=== PATIENT | male | born 1955 | race Two or more races ===

== ENCOUNTER 2024-06-05 08:59 | Emergency (ER) | payer MEDICARE, SELFPAY ==
[2024-06-05 08:59] VITALS: BMI 27.1
[2024-06-05 09:08] VITALS: BP 109/68; PULSE 86; RESP 19; TEMP 36.6; O2SAT 95; BMI 27.4
--- NOTE | 2024-06-05 09:30 | XR_ITS ---
Examination: CT lumbar spine, without contrast. 2-D sagittal reconstructions. 2-D coronal reconstructions. 3-D reconstructions. Date and time of exam:June 05, 2024 1032 hours INDICATIONS: Patient fell yesterday with injury to the lower back, lower back pain CTDI: vol (mGy):17.1 DLP: (mGycm):533 Technique: Multiple 1.25 mm axial sections of the lumbar spine without intravenous contrast have been obtained. 2-D sagittal and coronal reconstructions have been obtained. 3-D reconstructions have been obtained. Low dose protocols were performed. One or more of the following dose reduction techniques were used; automated exposure control, adjustment of the mA and/or KV according to patient size, use of iterative reconstruction technique. Findings: Adequate alignment lumbar vertebral bodies Mild disc narrowing upper 4 lumbar levels No lumbar vertebral body compression fracture Acute fracture right transverse process L1 without significant displacement L5-S1 4 mm central lumbar disc bulge L4-L5 4 mm central lumbar disc bulge IMPRESSION: Acute nondisplaced fracture right transverse process L1 Lumbar vertebral body compression fracture L5-S1, L4-L5 4 mm central lumbar disc bulges
--- NOTE | 2024-06-05 12:02 | EDNOTE_ITS ---
ED Back Injury Pain RME/HPI General Chief Complaint: Back Pain/Injury Stated Complaint: LOWER BACK PAIN S/P FALL YESTERDAY Time Seen by Provider: 06/05/24 09:26 Arrival date/time: 06/05/24 08:59 68-year-old male presents emergency department complains of right lower back pain after fall yesterday patient reports he was not dizzy prior to the fall he reports this was mechanical fall patient reports no head or neck injury Limitations: no limitations Related Data Home Medications ?Medication ?Instructions ?Recorded ?Confirmed alprazolam 1 mg tablet 1 mg PO BID ##0 11/01/07 01/03/20 bupropion HCl 150 mg 24 hr tablet, 150 mg PO QPM ##0 11/01/07 01/03/20 extended release (Wellbutrin XL) bupropion HCl 300 mg 24 hr tablet, 300 mg PO QAM ##0 11/01/07 01/03/20 extended release (Wellbutrin XL) dutasteride 0.5 mg capsule 0.5 mg PO DAILY ##0 11/01/07 01/03/20 (Avodart) omeprazole 20 mg capsule,delayed 20 mg PO QDAY ##0 03/22/17 01/03/20 release escitalopram oxalate 5 mg tablet 5 mg PO QDAY #0 tabs 03/23/17 01/03/20 (Lexapro) Previous Rx's ?Medication ?Instructions ?Recorded dicyclomine 20 mg tablet 20 mg PO Q8HR PRN Abdominal cramps 07/02/19 #10 tabs acetaminophen 500 mg capsule 1,000 mg (2 x 500 mg) PO Q6H PRN 01/02/20 fever or pain #30 caps ibuprofen 800 mg tablet 800 mg PO TID PRN pain #30 tabs 01/02/20 acetaminophen 500 mg capsule 1,000 mg (2 x 500 mg) PO Q6H PRN 01/03/20 fever or pain #30 caps ibuprofen 600 mg tablet 600 mg PO Q8H PRN fever or pain 01/03/20 #30 tabs hydrocodone 5 mg-acetaminophen 325 1 tab PO BID PRN pain #14 tabs 06/15/23 mg tablet ibuprofen 800 mg tablet 800 mg PO TID PRN pain #30 tabs 06/15/23 cyclobenzaprine 10 mg tablet 10 mg PO TID PRN muscle spasm 10 06/05/24 days #30 tab-caps hydrocodone 5 mg-acetaminophen 325 1 tab PO BID PRN pain #10 tabs 06/05/24 mg tablet Allergies Allergy/AdvReac Type Severity Reaction Status Date / Time No Known Allergies Allergy Verified 06/05/24 09:02 Review of Systems Review of Systems Systems Reviewed: All systems reviewed, normal except as documented Constitutional Constitutional: Reports system reviewed and no additional complaints, except as documented, Denies fever(s) and Denies headache(s) Eyes Eyes: Reports system reviewed and no additional complaints, except as documented and Denies blurry vision ENT Ears, Nose, Mouth, and Throat: Reports system reviewed and no additional complaints, except as documented, Denies headache(s), Denies nasal congestion and Denies nasal discharge Cardiovascular Cardiovascular: Reports system reviewed and no additional complaints, except as documented, Denies chest pain and Denies dyspnea Respiratory Respiratory: Reports system reviewed and no additional complaints, except as documented, Denies chest congestion, Denies cough and Denies dyspnea Gastrointestinal Gastrointestinal: Reports system reviewed and no additional complaints, except as documented and Denies abdominal pain Musculoskeletal Musculoskeletal: Reports system reviewed and no additional complaints, except as documented and Reports back pain Integumentary/Breasts Skin/Breast: Reports system reviewed and no additional complaints, except as documented and Denies rash Neurologic Neurologic: Reports system reviewed and no additional complaints, except as documented, Reports as per HPI and Denies headache(s) Past Medical History Past Medical History NEUROLOGIC: Negative Neurological Disorders CARDIAC: Positive Cardiac Disorders and Hypertension; Negative Congestive Heart Failure RESPIRATORY: Negative Chronic Obstructive Pulmonary Disease (COPD) GENITOURINARY: Negative Genitourinary Disorders or Renal Disease ENDOCRINE: Negative Endocrine Disorders, Diabetes Mellitus Type 1 or Diabetes Mellitus Type 2 Social History SMOKING STATUS: Never smoker SUBSTANCE USE: does not use ED Exam General Limitations: Present no limitations General appearance: Present alert and in no apparent distress Head Head exam: Present atraumatic Eye Eye exam: Present normal appearance, PERRL and EOMI ENT ENT exam: Present normal exam, normal oropharynx and mucous membranes moist Neck Neck exam: Present normal inspection, full ROM and trachea midline Chest Chest inspection: Present normal inspection and symmetric chest wall rise Respiratory Respiratory exam: Present normal lung sounds bilaterally Cardiovascular Cardiovascular exam: Present regular rate, normal rhythm and normal heart sounds Abdominal Exam Abdominal exam: Present soft and normal bowel sounds Extremities Exam Extremities exam: Present normal inspection and full ROM Back Exam Back exam: Present normal inspection and full ROM Neurological Exam Neurological exam: Present alert, oriented X3 and CN II-XII intact Psychiatric Psychiatric exam: Present normal affect and normal mood Skin Skin exam: Present warm, dry, intact and normal color Course Quality Measures none Orders Category Date Time Status CT lumbar spine wo con Stat Exams 06/05/24 09:30 Completed Vital Signs Vital signs: Vital Signs Temperature 97.9 F 06/05/24 09:08 Pulse Rate 86 06/05/24 09:08 Respiratory Rate 19 06/05/24 09:08 Blood Pressure 109/68 06/05/24 09:08 Pulse Oximetry (%) 95 06/05/24 09:08 Oxygen Delivery Method Room Air 06/05/24 09:08 O2 saturation 95% room air with normal limits Back Pain / Injury MDM Narrative MDM Narrative:: 68-year-old male presents emergency department complains of right lower back pain after fall yesterday patient reports he was not dizzy prior to the fall he reports this was mechanical fall patient reports no head or neck injury On exam head and neck are atraumatic On exam patient has right lower back pain worse with movement Patient has point tenderness right lower back Patient walks with a steady gait denies any saddle anesthesia or loss of bowel or bladder CT scan of the lumbar spine obtained patient has transverse process fracture Patient discharged home in no distress to follow-up with primary care doctor in the next 24 to 48 hours and for any worsening symptoms to return to the ER immediately Patient data External records reviewed:: [facility] previous records Clinical information provided by:: patient Social determinants that could affect healthcare access:: none Patient has the following chronic illnesses:: see history How is presenting disease/condition affected by chronic disease/condition?: uneffected by Evaluation data The following diagnostics were reviewed and interpreted by me:: radiology exam(s) Lab and/or radiology exams considered but not ordered:: Radiology obtain Interpretation Summary: Reviewed by me Medications / Prescriptions Medications or Prescriptions considered but not ordered:: Given Medication administrations:: Given Consultations Consultation(s) initiated? (list below): No Diagnosis Differential diagnosis back pain/injury: lumbar radiculopathy, sciatica and strain of lumbar region Most likely diagnosis given after review of the tests above:: Fracture lumbar spine Admission Indicated Admission indicated?: not indicated Admission Request Was there a request for admission?: No Disposition Plan Disposition Plan: Discharge Discharge Attestation Discharge Attestation: The patient and all family members were given an opportunity to ask questions and understood the discharge instructions. Discharge instructions specifically effects, indications for sooner follow up or return to the emergency department, and the expected course of current diagnosis. Patient condition: Stable Discharge Plan Plan Patient Disposition: HOME (Self Care) Disposition Comment: Stable Prescriptions/Referrals Prescriptions/Med Rec: New cyclobenzaprine 10 mg tablet 10 mg PO TID PRN (Reason: muscle spasm) 10 Days Qty: 30 0RF hydrocodone-acetaminophen 5-325 mg tablet 1 tab PO BID MDD 10 PRN (Reason: pain) Qty: 10 0RF No Action alprazolam 1 MG tablet 1 mg PO BID Qty: 0 dutasteride [Avodart] 0.5 MG capsule 0.5 mg PO DAILY Qty: 0 bupropion HCl [Wellbutrin XL] 300 MG tablet extended release 24 hr 300 mg PO QAM Qty: 0 bupropion HCl [Wellbutrin XL] 150 MG tablet extended release 24 hr 150 mg PO QPM Qty: 0 omeprazole 20 MG capsule,delayed release(DR/EC) 20 mg PO QDAY Qty: 0 escitalopram oxalate [Lexapro] 5 MG tablet 5 mg PO QDAY Qty: 0 dicyclomine 20 mg tablet 20 mg PO Q8HR PRN (Reason: Abdominal cramps) Qty: 10 0RF ibuprofen 800 mg tablet 800 mg PO TID PRN (Reason: pain) Qty: 30 0RF acetaminophen 500 mg capsule 1,000 mg PO Q6H PRN (Reason: fever or pain) Qty: 30 0RF ibuprofen 600 mg tablet 600 mg PO Q8H PRN (Reason: fever or pain) Qty: 30 0RF acetaminophen 500 mg capsule 1,000 mg PO Q6H PRN (Reason: fever or pain) Qty: 30 0RF ibuprofen 800 mg tablet 800 mg PO TID PRN (Reason: pain) Qty: 30 0RF hydrocodone-acetaminophen 5-325 mg tablet 1 tab PO BID MDD 10 PRN (Reason: pain) Qty: 14 0RF Referrals: Erendira North NP [Primary Care Provider] - In 1 week Problem List Clinical Impression: Lumbar transverse process fracture Patient/Caregiver Discharge Instructions Education Materials: Back Safety: Bending Additional Instructions: Please follow up with your primary care doctor in the next 24-48hrs for any worsening symptoms return here immediately Print Language: Ivorian Stand Alone Forms: Richa Award Info., Patient Portal Info Letter PA/[employer] Supervising Physician PA/[employer] Supervising Physician: Dr. henderson
[2024-06-05 12:21] VITALS: BP 120/68; PULSE 72; RESP 16; O2SAT 98
== END 2024-06-05 12:21 | disposition home or self-care (01) ==
PROVIDERS: Emergency Provider Emergency Medicine; PCP Nurse Practitioner Family
DX: S32.019A Unspecified fracture of first lumbar vertebra, initial encounter for closed fracture (principal); W19.XXXA Unspecified fall, initial encounter
CPT/HCPCS: 72131; 99284

== ENCOUNTER → 2024-08-06 | Outpatient (CLI) | payer MEDICARE, SELFPAY ==
--- NOTE | 2024-08-06 15:45 | XR_ITS ---
Examination: Abdomen sonogram, complete Date and time of exam: August 06, 2024 1558 hours INDICATIONS: Right upper abdominal pain hematuria beginning one week ago. Technique: Multiple real-time grayscale transabdominal sonographic images of the abdomen have been obtained. Findings: Absent gallbladder Normal bile duct 0.3 cm Pancreatic head 2.9 cm Aorta not enlarged Liver 14.9 cm smooth contour no focal liver lesions Normal hepatopedal portal venous flow Patent IVC Right kidney 9.6 x 7.6 x 7.0 cm renal cortex 1.9 cm Hyperechoic solid mass upper pole 2.2 x 1.9 x 2.1 cm Lower pole cyst 14 mm Left kidney 10.7 x 5.8 x 6.5 cm cortex 1.8 cm Multiple cysts, the largest upper pole 21 mm Mild bilateral renal parenchymal scar formation Spleen 11.8 cm IMPRESSION: Recommend CT scan abdomen pre and post contrast follow-up to assess solid mass upper pole right kidney 2.2 x 1.9 x 2.1 cm
--- NOTE | 2024-08-06 15:45 | XR_ITS ---
Examination: Retroperitoneal ultrasound, complete Technique: Multiple high resolution grayscale images of the retroperitoneum obtained, including kidneys and bladder. Exam date and time:August 06, 2024 1633 hours INDICATIONS: Right upper abdominal pain, hematuria episodes beginning one week ago FINDINGS: Right kidney 9.4 x 6.9 x 6.4 cm in the cortex 1.5 cm Isoechoic to hyperechoic mass upper pole kidney 1.8 x 2.0 x 2.3 cm Lower pole cyst 14 mm Left kidney 10.3 x 6.7 x 6.3 cm cortex 1.6 cm Multiple cysts, the largest in the upper pole 28 mm Mild bilateral renal parenchymal scar formation No bladder mass or bladder calculi Bladder prevoid volume 174 cc unable to void Prostate volume 34 cc no prostate nodules multiple calcifications are present IMPRESSION: Recommend CT scan abdomen kidneys follow-up pre and postcontrast to confirm solid mass upper pole right kidney 1.8 x 2.0 x 2.3 cm
[2024-08-06 17:18] LABS: Collection Type, Urine Clean Catch
[2024-08-06 17:38] LABS: Basophils # (Auto) 0.1 Thou/mm3 (0.0-0.2); Basophils % (Auto) 1 % (0-2.5); Eosinophils # (Auto) 0.2 Thou/mm3 (0.0-0.5); Eosinophils % (Auto) 2 % (0-10); Hematocrit 42.3 % (41.0-53.0); Hemoglobin 14.6 g/dL (13.5-16.0); Immature Granulocytes % (Auto) 0 % (0-0); Immature Granulocytes Auto 0.02 Thou/mm3 (0.00-0.00); Lymphocytes # (Auto) 1.8 Thou/mm3 (1.0-4.8); Lymphocytes % (Auto) 20 % (10-50); Mean Corpuscular HGB Conc 34.5 g/dl (31.0-37.0); Mean Corpuscular Volume 87 fL (80-100); Monocytes # (Auto) 0.6 Thou/mm3 (0.0-0.8); Monocytes % (Auto) 6 % (0-12); Neutrophils # (Auto) 6.6 Thou/mm3 (1.8-7.7); Neutrophils % (Auto) 72 % (37-80); Nucleated Red Blood Cell % 0 /100 WBC (0); Platelet Count 307 Thou/mm3 (140-440); RDW Standard Deviation 46.1 fL (35.1-43.9); Red Blood Count 4.86 Miln/mm3 (4.50-5.90); White Blood Count 9.2 Thou/mm3 (3.8-10.6)
[2024-08-06 17:41] LABS: Bilirubin,Urine Negative (Negative); Blood,Urine Negative (Negative); Clarity,Urine Clear (Clear/Hazy); Color,Urine Lt-Yellow (Lt Yel-Yel); Glucose, Urine Trace (Negative); Ketones,Urine Negative (Negative); Leukocyte Esterase,Urine Negative (Negative); Nitrite,Urine Negative (Negative); PH,Urine 6.5 (5.0-7.0); Protein,Urine Negative (Neg - Trace); RBC,Urine 3 /hpf (0-3); Specific Gravity,Urine 1.025 (1.001-1.035); Squamous Epithelial Cell,Urine < 1 /hpf (0-5); Urobilinogen,Urine Negative mg/dL (0.0-1.0); WBC,Urine 1 /hpf (0-5)
[2024-08-06 17:56] LABS: Creatinine MALB Rnd Ur 148 mg/dL (30-125); Microalbumin Creat Ratio 2 mg/gCrea (<30); Microalbumin, Random Urine 3 mg/L (0-300)
[2024-08-06 17:58] LABS: Prostate Specific Antigen 1.34 ng/mL (0-4.00)
[2024-08-06 18:00] LABS: Alanine Aminotransferase 31 U/L (10-49); Albumin, Serum 4.3 gm/dL (3.4-4.8); Albumin/Globulin Ratio 1.7 (1.2-2.2); Alkaline Phosphatase 102 U/L (46-116); Anion Gap 8 (7-16); Aspartate Amino Transferase 20 U/L (0-34); BUN/Creatinine Ratio 20 Ratio (12-20); Bilirubin,Total 0.4 mg/dL (0.3-1.2); Blood Urea Nitrogen 22 mg/dL (9-23); Calcium 9.3 mg/dL (8.3-10.6); Calcium (Corrected) 9.3 mg/dL (8.5-10.1); Carbon Dioxide 25.1 mMol/L (20.0-31.0); Chloride 105 mMol/L (98-107); Creatinine (Component) 1.1 mg/dL (0.6-1.3); Globulin 2.6 gm/dL (2.3-3.5); Glucose 131 mg/dL (74-106); Osmolality,Calculated 280 (275-295); Potassium 4.4 mMol/L (3.4-5.1); Sodium 138 mMol/L (136-145); Total Protein 6.9 gm/dL (5.7-8.2); eGFR > 60 See Note
== END | disposition home or self-care (01) ==
LOC: COPL 15:28
PROVIDERS: PCP Nurse Practitioner Family; Referring Provider Nurse Practitioner Family; Visit Provider Radiology Diagnostic Radiology
DX: R10.9 Unspecified abdominal pain (principal); R31.9 Hematuria, unspecified; E11.65 Type 2 diabetes mellitus with hyperglycemia; E78.2 Mixed hyperlipidemia; R10.0 Acute abdomen; R14.0 Abdominal distension (gaseous); K21.00 Gastro-esophageal reflux disease with esophagitis, without bleeding; Z12.5 Encounter for screening for malignant neoplasm of prostate; Z79.899 Other long term (current) drug therapy
CPT/HCPCS: 36415; 76700; 76770; 80053; 80061; 81001; 82043; 82570; 83036; 84153; 85025; 87086

== ENCOUNTER → 2024-08-08 | Outpatient (CLI) | payer MEDICARE, SELFPAY ==
[2024-08-15 06:24] LABS: Helicobacter pylori Ag, Stool* NOT DETECTED (NOT DETECTED)
== END | disposition home or self-care (01) ==
LOC: SLDO 12:02
PROVIDERS: Referring Provider Nurse Practitioner Family; Visit Provider Nurse Practitioner Family
DX: E11.65 Type 2 diabetes mellitus with hyperglycemia (principal); E78.2 Mixed hyperlipidemia; R10.0 Acute abdomen; R14.0 Abdominal distension (gaseous); R31.9 Hematuria, unspecified; Z12.5 Encounter for screening for malignant neoplasm of prostate; K21.00 Gastro-esophageal reflux disease with esophagitis, without bleeding; Z79.899 Other long term (current) drug therapy
CPT/HCPCS: 87015; 87045; 87046; 87177; 87209; 87338; 87899

== ENCOUNTER → 2024-08-15 | Outpatient (CLI) | payer MEDICARE, SELFPAY ==
[2024-08-15 10:13] LABS: Misc Send Out* See Sep Rpt
[2024-08-15 10:16] LABS: Collection Type, Urine Clean Catch; Squamous Epithelial Cell,Urine 0 /hpf (0-5)
[2024-08-15 11:43] LABS: Bilirubin,Urine Negative (Negative); Blood,Urine Negative (Negative); Clarity,Urine Clear (Clear/Hazy); Color,Urine Colorless (Lt Yel-Yel); Glucose, Urine Negative (Negative); Ketones,Urine Negative (Negative); Leukocyte Esterase,Urine Negative (Negative); Nitrite,Urine Negative (Negative); Protein,Urine Negative (Neg - Trace); RBC,Urine 1 /hpf (0-3); Specific Gravity,Urine 1.004 (1.001-1.035); Urobilinogen,Urine Negative mg/dL (0.0-1.0); WBC,Urine < 1 /hpf (0-5)
[2024-08-19 03:06] LABS: Cow's Milk (f2) Class 0; Cow's Milk (f2) IgE <0.10 kU/L; Egg White (F1) Class 0; Egg White (F1) IgE <0.10 kU/L; Egg Yolk (F75) IgE <0.10 kU/L; Soybean (F14) Class 0; Soybean (F14) IgE <0.10 kU/L; Wheat (F4) Class 0; Wheat (F4) IgE <0.10 kU/L
[2024-08-20 06:53] LABS: Egg Yolk (F75) Class 0
== END | disposition home or self-care (01) ==
LOC: COPL 09:39
PROVIDERS: PCP Nurse Practitioner Family; Referring Provider Nurse Practitioner Family; Visit Provider Nurse Practitioner Family
DX: R10.9 Unspecified abdominal pain (principal); R14.0 Abdominal distension (gaseous); N39.0 Urinary tract infection, site not specified; K21.9 Gastro-esophageal reflux disease without esophagitis
CPT/HCPCS: 36415; 81001; 86003; 86021; 86036; 86671

== ENCOUNTER → 2024-08-16 | Outpatient (CLI) | payer MEDICARE, SELFPAY ==
[2024-08-23 06:38] LABS: Helicobacter pylori Ag, Stool* NOT DETECTED (NOT DETECTED)
== END | disposition home or self-care (01) ==
LOC: SLDO 16:36
PROVIDERS: PCP Nurse Practitioner Family; Referring Provider Nurse Practitioner Family; Visit Provider Nurse Practitioner Family
DX: R10.9 Unspecified abdominal pain (principal); R14.0 Abdominal distension (gaseous); N39.0 Urinary tract infection, site not specified; K21.9 Gastro-esophageal reflux disease without esophagitis
CPT/HCPCS: 87338

== ENCOUNTER 2024-08-29 10:01 | Inpatient (IN) | payer MEDICARE, SELFPAY ==
[2024-08-29] VITALS (7 sets, daily range): BP systolic 95–105; BP diastolic 54–73; PULSE 94–104; RESP 16–29; TEMP 36.4–37.9; O2SAT 94–100; BMI 25.8; BMI 26.8
--- NOTE | 2024-08-29 | XR_ITS ---
MRI abdomen, without contrast. MRCP Date and time of exam: August 29, 2024 1402 hours INDICATIONS: Chief complaint lower abdominal pain distal and 50 today, CT abdomen pelvis study today pancreatic head 2.8 cm Technique: Multiple axial and coronal images of the abdomen have been obtained with the Siemens 1.5T MRI scanner. Images obtained included T1 weighted transverse images, T2-weighted transverse images, T2-weighted transverse images fat-suppressed, T2 weighted haste fat suppressed transverse images, T1 weighted images, in and out of phase images, T2-weighted coronal images, breath hold, T2 weighted haze coronal images as well as T2 weighted coronal thick slab images, MRCP. Findings: Small liver cysts 26 mm probable hemangioma posterior right lobe liver Absent gallbladder Common hepatic common bile duct normal size 3 to 4 mm no stones Pancreatic head in AP dimension 4.5 cm No dilated pancreatic duct No hydronephrosis Spleen not enlarged No malignant ascites IMPRESSION: Pancreatic head is prominent Recommend MRI abdomen with intravenous contrast follow-up
--- NOTE | 2024-08-29 | XR_ITS ---
Examination: MRI abdomen with intravenous contrast TECHNIQUE: Multiple axial sagittal coronal MRI images abdomen postintravenous administration 20 cc gadolinium Examination date and time: August 29, 2024 1950 hours INDICATIONS: Prominent pancreatic head on CT abdomen study today FINDINGS: No intrahepatic biliary tract dilatation Pancreatic head 3.9 cm No dilated pancreatic duct No hydronephrosis Aorta normal size No mesenteric lymphadenopathy No ascites IMPRESSION: Prominent pancreatic head 3.9 cm, clinical correlation is advised Recommend three-month follow-up MRI abdomen pre and postcontrast
--- NOTE | 2024-08-29 10:05 | EKG_ITS ---
[facility] Test Date: 2024-08-29 Pat Name: TL BERNABE Department: Room: - Gender: Male [place] Car[place]: : 1955 Requested By: ED Temporary Provider Order Number: [id number] Reading MD: ED Temporary Provider Measurements Intervals [place] Rate: 103 P: 54 NE: 171 QRS: 24 QRSD: 92 T: 66 QT: 306 QTc: 401 Interpretive Statements SINUS TACHYCARDIA NONSPECIFIC T-WAVE ABNORMALITY ABNORMAL RHYTHM ECG Compared to ECG 07/01/2019 23:05:07 T-wave abnormality now present Sinus rhythm no longer present /store/[id number].pdf
--- NOTE | 2024-08-29 10:42 | XR_ITS ---
Examination: CT abdomen and pelvis without contrast. Coronal 3-D reconstructions. Sagittal 2-D reconstructions. Date and time of exam:August 29, 2024 1057 hours Comparison March 12, 2021 INDICATIONS: Lower abdominal pain and nausea onset today CTDI: vol (mGy): 6.58 DLP: (mGycm): 434 Technique: Axial images of the abdomen have been obtained, 3 mm slice thickness Intravenous contrast material has not been administered. Low dose protocols were performed. One or more of the following dose reduction techniques were used; automated exposure control, adjustment of the mA and/or KV according to patient size, use of iterative reconstruction technique. Findings: Soft opacities in both lower lung zones consistent with pneumonia Small probable liver cyst Absent gallbladder Spleen is not enlarged Absent gallbladder No pancreatic or adrenal mass Pancreatic head is prominent at least 3.8 cm 2 mm right renal calculus Perinephric stranding Aorta normal size Normal appendix No bowel obstruction No bladder mass Prostate radiation seeds, transverse prostate dimension 4.7 cm Moderate osteopenia IMPRESSION: Soft opacities in the lower lung zones, recommend PA lateral chest follow-up Prominent pancreatic head 3.8 cm, recommend MRI MRCP abdomen follow-up pre and postcontrast 10 mm right renal calculus Perinephric stranding consider urinary tract infection Moderate prostatomegaly No bowel obstruction Recommend hepatic sonography to confirm liver cysts
--- NOTE | 2024-08-29 10:43 | EDRME_ITS ---
Rapid Medical Screening Exam RME Arrival date/time: 08/29/24 10:01 69-year-old male with a history of Crohn's disease presents to the emergency room with a chief complaint of lower abdominal pain, blood in the stool, fatigue x 1 day I have greeted and performed a focused initial assessment of this patient. A com prehensive ED assessment and evaluation of the patient, analysis of all test results, and completion of the medical decision making process will be conducted by additional ED providers. Vital signs: Vital Signs Temperature 97.6 F 08/29/24 10:37 Pulse Rate 104 H 08/29/24 10:37 Respiratory Rate 20 08/29/24 10:37 Blood Pressure 103/67 08/29/24 10:37 Pulse Oximetry (%) 100 08/29/24 10:37 Oxygen Delivery Method Room Air 08/29/24 10:37 Vital signs reviewed by provider: Yes
[2024-08-29 11:01] LABS: Basophils % (Auto) 0 % (0-2.5); Eosinophils # (Auto) 0.1 Thou/mm3 (0.0-0.5); Eosinophils % (Auto) 1 % (0-10); Hematocrit 24.8 % (41.0-53.0); Immature Granulocytes % (Auto) 0 % (0-0); Immature Granulocytes Auto 0.04 Thou/mm3 (0.00-0.00); Lymphocytes # (Auto) 1.8 Thou/mm3 (1.0-4.8); Lymphocytes % (Auto) 17 % (10-50); Mean Corpuscular HGB Conc 33.5 g/dl (31.0-37.0); Mean Corpuscular Hemoglobin 28.8 pg (25.0-35.0); Mean Corpuscular Volume 86 fL (80-100); Monocytes # (Auto) 0.6 Thou/mm3 (0.0-0.8); Monocytes % (Auto) 6 % (0-12); Neutrophils # (Auto) 8.2 Thou/mm3 (1.8-7.7); Neutrophils % (Auto) 76 % (37-80); Nucleated Red Blood Cell % 0 /100 WBC (0); Platelet Count 238 Thou/mm3 (140-440); RDW Standard Deviation 44.1 fL (35.1-43.9); Red Blood Count 2.88 Miln/mm3 (4.50-5.90); White Blood Count 10.7 Thou/mm3 (3.8-10.6)
[2024-08-29 11:04] LABS: Hemoglobin 8.3 g/dL (13.5-16.0)
--- NOTE | 2024-08-29 11:13 | PD.EDSYNC ---
ED Syncope RME/HPI General Chief Complaint: Dizziness Stated Complaint: PASSED OUT TODAY, DIZZY SINCE YESTERDAY Time Seen by Provider: 08/29/24 11:13 Arrival date/time: 08/29/24 10:01 69 year old male with past medical history of pancreatitis, cholelthiasis present to emergency room with c/o of syncope episode and dizziness since yesterday. per family report found patient on the ground with diarrhea/bloody stool. LOCATION: generalized SEVERITY: Symptoms are described as being severe with limitations on activities of daily living CONTEXT: The patient is unable to identify any inciting events. DURATION/TIMING: The symptoms started approximately 1 day ASSOCIATED SYMPTOMS: rectal bleeding, syncope, dizziness, weakness MODIFYING FACTORS: The patient is unable to identify any alleviating or aggravating symptoms. PERTINENT ROS: no fevers, no cough, no pleuritic pain, no ripping or tearing sensations, denies any lower extremity edema and no unilateral swelling, no chest pain/shortness of breath no nausea,vomiting, diarrhea, no headache no rash episode no abd/back pain no dsyuria,urgency,frequency REVIEW OF SYSTEMS: See History of Present Illness - with the exception of those mentioned in the history of present illness, all other systems reviewed and reported as negative GENERAL: In general the patient is awake, interactive, in an emergency department gurney. HEAD/EYES/EARS/NOSE/THROAT: normo-cephalic, atraumatic, mucus membranes are moist, anicteric, palpebral conjunctiva is pink, trachea is midline. CARDIOVASCULAR: regular rate and regular rhythm, no murmurs, heart sounds are not distant, strong pulses in all four extremities that are equal and symmetric bilateral upper and lower extremities, normal capillary refill. CHEST/PULMONARY: normal chest rise and fall, good air movement, clear to auscultation bilaterally, normal inspiratory to expiratory ratios without evidence of respiratory distress. NECK: No midline/Paraspinal tenderness, no step off ROM/Strenght intact No Kernig and bruzinski sign. No trauma ABDOMEN: soft, not tender, no masses appreciated BACK: normal range of motion without pain. NEUROLOGICAL: cranio-facial features are symmetric, moves all four extremities equally without obvious limitations or weakness. EXTREMITY: no tenderness to palpation over the long bones or large joints of the bilateral upper and lower extremities, no joint swelling, no joint erythema, no signs of trauma, no unilateral leg swelling and no peripheral edema. SKIN: warm, dry, well-perfused, no jaundice, no rash, no telangiectasias or petechia. PSYCH: calm, cooperative, no evidence of psychosis or agitation RME / HPI RME / HPI narrative: 08/29/24 10:01 69-year-old male with a history of Crohn's disease presents to the emergency room with a chief complaint of lower abdominal pain, blood in the stool, fatigue x 1 day I have greeted and performed a focused initial assessment of this patient. A comprehensive ED assessment and evaluation of the patient, analysis of all test results, and completion of the medical decision making process will be conducted by additional ED providers. Related Data Home Medications ?Medication ?Instructions ?Recorded ?Confirmed alprazolam 1 mg tablet 1 mg PO BID ##0 11/01/07 01/03/20 bupropion HCl 150 mg 24 hr tablet, 150 mg PO QPM ##0 11/01/07 01/03/20 extended release (Wellbutrin XL) bupropion HCl 300 mg 24 hr tablet, 300 mg PO QAM ##0 11/01/07 01/03/20 extended release (Wellbutrin XL) dutasteride 0.5 mg capsule 0.5 mg PO DAILY ##0 11/01/07 01/03/20 (Avodart) omeprazole 20 mg capsule,delayed 20 mg PO QDAY ##0 03/22/17 01/03/20 release escitalopram oxalate 5 mg tablet 5 mg PO QDAY #0 tabs 03/23/17 01/03/20 (Lexapro) Previous Rx's ?Medication ?Instructions ?Recorded dicyclomine 20 mg tablet 20 mg PO Q8HR PRN Abdominal cramps 07/02/19 #10 tabs acetaminophen 500 mg capsule 1,000 mg (2 x 500 mg) PO Q6H PRN 01/02/20 fever or pain #30 caps ibuprofen 800 mg tablet 800 mg PO TID PRN pain #30 tabs 01/02/20 acetaminophen 500 mg capsule 1,000 mg (2 x 500 mg) PO Q6H PRN 01/03/20 fever or pain #30 caps ibuprofen 600 mg tablet 600 mg PO Q8H PRN fever or pain 01/03/20 #30 tabs hydrocodone 5 mg-acetaminophen 325 1 tab PO BID PRN pain #14 tabs 06/15/23 mg tablet ibuprofen 800 mg tablet 800 mg PO TID PRN pain #30 tabs 06/15/23 hydrocodone 5 mg-acetaminophen 325 1 tab PO BID PRN pain #10 tabs 06/05/ mg tablet Allergies Allergy/AdvReac Type Severity Reaction Status Date / Time No Known Allergies Allergy Verified 08/29/24 10:05 Course Quality Measures none Orders Category Date Time Status EKG (ED ONLY) *Do not use* NOW Care 08/29/24 10:05 Completed Insert IV NOW Care 08/29/24 12:21 Active MRI Screening NOW Care 08/29/24 11:49 Active Occult Blood,Stool (Nursing) NEEDED Care 08/29/24 10:42 Completed Occult Blood,Stool (Nursing) ONCE Care 08/29/24 11:55 Active Consult to Gastroenterology Stat Cons 08/29/24 13:16 Ordered Diet Clear Liquid Diet 08/29/[address] abdomen pelvis wo con Stat Exams 08/29/24 10:42 Completed EKG (ED Only) Stat Exams 08/29/24 10:05 Draft MR MRCP Stat Exams 08/29/24 Ordered Alcohol, Blood Medical Stat Lab 08/29/24 10:53 Completed CBC Stat Lab 08/29/24 10:53 Completed CMP [Comprehensive Metabolic Panel] Stat Lab 08/29/24 10:53 Completed Lipase Stat Lab 08/29/24 10:53 Completed Occult Blood, Stool (LAB) Stat Lab 08/29/24 12:25 Completed Troponin I Stat Lab 08/29/24 10:53 Completed Type and Screen Stat Lab 08/29/24 10:53 Completed UA [Urinalysis] Stat Lab 08/29/24 11:05 Completed Urine Culture Stat Lab 08/29/24 10:42 Received Sodium Chloride 0.9% 1000 ml [Ns] 1,000 ml Med 08/29/24 11:52 Discontinued IV 999 mls/hr Reevaluation(s) Reevaluation #1: pt is comfortable treatment and plan. Vital Signs Vital signs: Vital Signs Temperature 97.6 F 08/29/24 10:37 Pulse Rate 104 H 08/29/24 10:37 Respiratory Rate 20 08/29/24 10:37 Blood Pressure 103/67 08/29/24 10:37 Pulse Oximetry (%) 100 08/29/24 10:37 Oxygen Delivery Method Room Air 08/29/24 10:37 Procedures -ED EKG Interpretation #1: Date of EK08/29/24 Rate: 103 Interpretation: Reviewed by me EKG Impression: No ischemic changes and Sinus tachycardia Syncope MDM Narrative MDM Narrative:: DISPOSITION: Emergency Department nursing documentation was reviewed including triage complaint, associated symptoms, administration of medications, response to therapy and vital signs. Given the history, physical exam, and review of laboratory and imaging studies the patient is determined to be unsafe for discharge and is being moved into the hospital for further diagnostic tests, treatments, stabilization, and monitored response to therapy. I communicated the history, physical exam, pertinent laboratory and imaging studies to the inpatient physician. The inpatient physician has access to electronic copies of all emergency department laboratory testing and imaging studies as well as medications ordered and administered. Patient data External records reviewed:: [facility] previous records Clinical information provided by:: patient and parent Social determinants that could affect healthcare access:: none Patient has the following chronic illnesses:: pancreastitis tachycardia, choleithiasis How is presenting disease/condition affected by chronic disease/condition?: exacerbated by Evaluation data The following diagnostics were reviewed and interpreted by me:: lab results, radiology exam(s) and EKG tracing(s) Lab and/or radiology exams considered but not ordered:: none Interpretation Summary: ct: Prominent pancreatic head 3.8 cm, recommend MRI MRCP abdomen follow-up pre and postcontrast cbc + anemia lower hgb since 08/06/24 cmp: creat 54, bun 6, eoth: negative trop negative urine no infection MRI pending Medications / Prescriptions Medications or Prescriptions considered but not ordered:: none Medication administrations:: Medication Administration History Discontinued Medications Sodium Chloride (Ns) 1,000 mls @ 999 mls/hr IV .Q1H1M ONE Stop: 08/29/24 12:52 Last Infusion: 08/29/24 13:21 Dose: Infused Documented By: Admin: 08/29/24 12:14 Dose: 999 mls/hr Documented By: SYLVIA as stated above Consultations Consultation(s) initiated? (list below): Yes Consultation #1 (Physician, Specialty, Details): 1:13 Dr. Carter will come in for consult. recommend admission clear diet and will see patient later tonight Consultation #2 (Physician, Specialty, Details): 1:30 Dr. Douglas accept patient for admission Diagnosis Syncope Differential Diagnosis: syncope due to orthostatic hypotension, vasovagal syncope, dehydration and other (gi bleed, mass, ) Most likely diagnosis given after review of the tests above:: GI bleed, Syncope Admission Indicated Admission indicated?: indicated Admission Request Was there a request for admission?: Yes Admission Attestation Admission request attestation: Discussed case with [] from Hospitalist service regarding admission. Discussed patients ED course, exam findings, labs, and radiology results. The Hospitalist [agrees,declines] to accept the patient for admission. Disposition Plan Disposition Plan: Admit Discharge Plan Plan Patient Disposition: Admit Acute Care w/in Hospital Prescriptions/Referrals Prescriptions/Med Rec: No Action alprazolam 1 MG tablet 1 mg PO BID Qty: 0 dutasteride [Avodart] 0.5 MG capsule 0.5 mg PO DAILY Qty: 0 bupropion HCl [Wellbutrin XL] 300 MG tablet extended release 24 hr 300 mg PO QAM Qty: 0 bupropion HCl [Wellbutrin XL] 150 MG tablet extended release 24 hr 150 mg PO QPM Qty: 0 omeprazole 20 MG capsule,delayed release(DR/EC) 20 mg PO QDAY Qty: 0 escitalopram oxalate [Lexapro] 5 MG tablet 5 mg PO QDAY Qty: 0 dicyclomine 20 mg tablet 20 mg PO Q8HR PRN (Reason: Abdominal cramps) Qty: 10 0RF ibuprofen 800 mg tablet 800 mg PO TID PRN (Reason: pain) Qty: 30 0RF acetaminophen 500 mg capsule 1,000 mg PO Q6H PRN (Reason: fever or pain) Qty: 30 0RF ibuprofen 600 mg tablet 600 mg PO Q8H PRN (Reason: fever or pain) Qty: 30 0RF acetaminophen 500 mg capsule 1,000 mg PO Q6H PRN (Reason: fever or pain) Qty: 30 0RF ibuprofen 800 mg tablet 800 mg PO TID PRN (Reason: pain) Qty: 30 0RF hydrocodone-acetaminophen 5-325 mg tablet 1 tab PO BID MDD 10 PRN (Reason: pain) Qty: 14 0RF hydrocodone-acetaminophen 5-325 mg tablet 1 tab PO BID MDD 10 PRN (Reason: pain) Qty: 10 0RF Referrals: [facility], [employer] [Primary Care Provider] - In 1 week Problem List Clinical Impression: Acute dehydration, Hemoglobin low, Acute GI bleeding Patient/Caregiver Discharge Instructions Print Language: Yoruba Stand Alone Forms: [facility] Award Info., Patient Portal Info Letter
[2024-08-29 11:19] LABS: Anion Gap 5 (7-16); BUN/Creatinine Ratio 49 Ratio (12-20); Blood Urea Nitrogen 54 mg/dL (9-23); Carbon Dioxide 23.2 mMol/L (20.0-31.0); Chloride 110 mMol/L (98-107); Creatinine (Component) 1.1 mg/dL (0.6-1.3); Potassium 4.8 mMol/L (3.4-5.1); Sodium 138 mMol/L (136-145)
[2024-08-29 11:20] LABS: Alanine Aminotransferase 16 U/L (10-49); Albumin, Serum 3.5 gm/dL (3.4-4.8); Albumin/Globulin Ratio 1.6 (1.2-2.2); Alkaline Phosphatase 69 U/L (46-116); Aspartate Amino Transferase 27 U/L (0-34); Bilirubin,Total 0.3 mg/dL (0.3-1.2); Calcium 8.4 mg/dL (8.3-10.6); Calcium (Corrected) 8.8 mg/dL (8.5-10.1); Globulin 2.2 gm/dL (2.3-3.5); Glucose 250 mg/dL (74-106); Lipase 39 U/L (12-53); Osmolality,Calculated 298 (275-295); Total Protein 5.7 gm/dL (5.7-8.2); eGFR > 60 See Note
[2024-08-29 11:33] LABS: Collection Type, Urine Clean Catch
[2024-08-29 11:46] LABS: Bilirubin,Urine Negative (Negative); Blood,Urine Negative (Negative); Clarity,Urine Clear (Clear/Hazy); Color,Urine Lt-Yellow (Lt Yel-Yel); Glucose, Urine 3+ (Negative); Ketones,Urine Negative (Negative); Leukocyte Esterase,Urine Negative (Negative); Nitrite,Urine Negative (Negative); PH,Urine 6.5 (5.0-7.0); Protein,Urine Negative (Neg - Trace); RBC,Urine < 1 /hpf (0-3); Specific Gravity,Urine 1.022 (1.001-1.035); Squamous Epithelial Cell,Urine < 1 /hpf (0-5); Urobilinogen,Urine Negative mg/dL (0.0-1.0); WBC,Urine 1 /hpf (0-5)
[2024-08-29] MEDS: SODIUM CHLORIDE 0.9% 1000 ML 1,000 ML 999 ML IV (12:14)
[2024-08-29 12:35] LABS: OBS Card Lot # 124; OBS Developer Lot # 224; OBS Performed By BOTED; OBS QC OK? Yes; Occult Blood, Stool Positive (Negative)
[2024-08-29 12:47] LABS: Alcohol, Blood Medical < 3.0 mg/dL (0-10.0); Troponin I < 0.020 ng/mL (0.0-0.045)
--- NOTE | 2024-08-29 14:39 | PC.CC ---
Patient is a 69 year-old male who presents to the hospital due to passing out today and dizzy since yesterday. ASWSarah made [id number] contact with patient. ASW introduced self, role, and reason for visit. At bedside was patient's , Andrew who completed assessment with ASW. Per patient's , he is ambulatory and is able to complete his own ADLs. 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 Patient's reports the requested to stop life support multiple time which she declined. Patient receives primary care with [facility] and for prescription medications he uses [facility]. Upon discharge the patient is planning to return home with the support of his . automotive services manager to follow-up with any discharge needs.
[2024-08-29] MEDS: SODIUM CHLORIDE 0.9% 1000 ML 1,000 ML 120 ML IV ×2 (16:09→22:05)
[2024-08-29] MEDS: PANTOPRAZOLE INJ 40 MG VIAL IV (16:09)
--- NOTE | 2024-08-29 17:09 | ESHP_ITS ---
Documentation for date of: 08/29/24 HPI History of Present Illness History of present illness: HPI is limited as patient seems to be somewhat of a poor historian, also HPI conducted using Armenian translation Milo is a 69 y/o male with past medical history of RONI, hypertension, (? Crohn's disease, diagnosed 3 days ago) who is here for an evaluation of 4-5 episodes of dark tarry stools that had started 3 days ago. Patient reports that he has not had symptoms like this before. He said that he came to the ER couple of days ago and was having some abdominal pain that started in his epigastric region and became diffuse. He said he did not go to the ER to get evaluated because his pain went away. He did say that this morning however he woke up with shortness of breath around 2 AM. He went to the family room to go catch his breath. He later started to feel weak and lie down and then he woke up to his waking him up. His recommended for him to take a shower. He noticed that his symptoms did not improve and that is when he decided to come get further evaluated. He says that about 25 years ago he had some lower abdominal pain, however said that it would go away. He also said that he got diagnosed with Crohn's disease a couple of days ago. He also says that he has had an endoscopy and colonoscopy before. He says he has had an endoscopy for due to some abdominal pain. He says prior to this he has never had black stools. He sees his primary care routinely and takes medicines as prescribed. He has not traveled anywhere recently. He has not been sick recently. He is denies having any hematemesis or cough. He denies being on any blood thinners and says he takes some medicine for high blood pressure. He denies any other falls. He is not measuring his blood pressure. He does say he takes anxiety medicines routinely. It appears to be that the patient does take a number of pain medicines including ibuprofen on home medicine rec. He has no other complaints at this time. ED course: Patient arrived to the ED with a blood pressure of 103/67, respiratory of 20, heart rate of 104, temperature of 98 Fahrenheit, saturating 100% room air. He was worked up and was found to have a white count of 10.7, hemoglobin of 8.3 (baseline seems to be about 14), sodium of 138, potassium 4.8, chloride of 110, anion gap of 5, BUN/creatinine of 54 and 1.1 respectively, blood sugar of 250, calcium of 8.8, T. bili of 0.3, AST ALT of 27 and 16 respectively, troponin negative x 1, Urine analysis did show +3 glucose, FOBT positive. CT abdomen pelvis showed prominent pancreatic head measuring 3.8 centimeters, 10 mm right renal calculus, moderate prostamegaly, perinephric stranding. MRI cholangiopancreatography was done which showed prominent pancreatic head with recommendations for follow-up with IV contrast. GI was consulted who recommended inpatient admission. Patient was given 1 L bolus and medicine was consulted and patient was admitted to floors Past medical history: As above Surgeries: Cholecystectomy and penile implant surgery Allergies no known allergies Meds: Xanax, Lexapro, bupropion, omeprazole, Avodart, dicyclomine, [place] 5 Family history: No known family history, as patient does not talk to family Social history: Born in [place] raised in [place] and has been here since 1971. He is , has 8 children 3 different women. Denies any alcohol, smoking or drug history. He says that he exercises and walks a few a problem a lot. He also says that he eats healthy including lean meats. Review of Systems Review of Systems Narrative Review of Systems: 12 point ROS is reviewed and is otherwise negative unless stated directly in the HPI Exam Vital Signs Temp Pulse Resp BP Pulse Ox O2 Del Method 98.7 F 102 H 16 99/55 L 99 Room Air 08/29/24 16:08/29/24 16:08/29/24 16:08/29/24 16:08/29/24 16:08/29/24 16:00 Narrative Exam General: AAOx3, NAD, wearing mask, appears to have dyed hair, looks younger than his actual age, Armenian-speaking male HEENT: Dry mucous membranes, conjunctiva clear, EOMI, PERRLA, Cardiovascular: S1, S2, radial pulses +2 bilat, tachycardic Pulmonary: CTAB bilat no cough, no wheezing GI: No tenderness to light or deep palpitation, no guarding, rigidity, rebound tenderness or distension Extremities: No presence of trace or pitting edema in lower extremities bilaterally, dorsalis pedis pulses +2 bilaterally, palms of hand feels stiff and dry and appear to be a bit pale, cap refill less than 2 Neuro: AAOx3, no focal motor or sensory deficits in the UE or LE bilat Psych: Good judgement, thought and behavior. Cooperative Results: Labs 08/30/24 05:40 08/30/24 05:40 Labs: Short CBC 08/29/24 Range/Units 10:53 WBC 10.7 H (3.8-10.6) Thou/mm3 Hgb 8.3 L (13.5-16.0) g/dL Hct 24.8 L (41.0-53.0) % Plt Count 238 D (140-440) Thou/mm3 BMP 08/29/24 10:53 Sodium 138 Potassium 4.8 Chloride 110 H Carbon Dioxide 23.2 BUN 54 H Creatinine 1.1 Glucose 250 H Calcium 8.4 Cardiac Enzymes 08/29/24 Range/Units 10:53 Troponin I < 0.020 (0.0-0.045) ng/mL Liver Function 08/29/24 Range/Units 10:53 Total Bilirubin 0.3 (0.3-1.2) mg/dL AST 27 (0-34) U/L ALT 16 (10-49) U/L Alkaline Phosphatase 69 (46-116) U/L Albumin 3.5 (3.4-4.8) gm/dL Urine 08/29/24 Range/Units 11:05 Urine Color Lt-Yellow (Lt Yel-Yel) Urine Clarity Clear (Clear/Hazy) Urine pH 6.5 (5.0-7.0) Ur Specific [place] 1.022 (1.001-1.035) Urine Protein Negative (Neg - Trace) Urine Glucose (UA) 3+ A (Negative) Quality Measures Quality Measures none Advance care planning discussed with:: patient Medications Home Medications and Allergies Home Medications ?Medication ?Instructions ?Recorded ?Confirmed ?Type alprazolam 1 mg tablet 1 mg PO BID ##0 11/01/0712/16 History bupropion HCl 150 mg 24 hr tablet, 150 mg PO QAM ##0 0 11/01/07 08/29/24 History extended release (Wellbutrin XL) bupropion HCl 300 mg 24 hr tablet, 300 mg PO QAM ##0 0 11/01/07 08/29/24 History extended release (Wellbutrin XL) ergocalciferol (vitamin D2) 1,250 50,000 unit PO QWEEK 08/29/24 08/29/24 History mcg (50,000 unit) capsule gemfibrozil 600 mg tablet 600 mg PO BID 08/29/2408/29 History quetiapine 50 mg tablet 50 mg PO .QHS 08/29/2408/29 History Allergies Allergy/AdvReac Type Severity Reaction Status Date / Time No Known Allergies Allergy Verified 08/29/24 10:05 Visit Medications Folic Acid (Folic Acid 1 Mg Tablet) 1 mg PO BID ROEL Stop: 09/28/24 20:59 Sodium Chloride (Ns) 1,000 mls @ 120 mls/hr IV .Q8H20M ROEL Stop: 09/28/24 15:34 Last Admin: 08/29/24 16:09 Dose: 120 mls/hr Lactated Ringer's (Lactated Ringers) 1,000 mls @ 999 mls/hr IV .Q1H1M ONE Stop: 08/29/24 17:21 Iron Sucrose (Iron Sucrose Cplx Inj 20 Mg/Ml Vial 5 Ml) 200 mg IVP DAILY ROEL Stop: 09/02/24 17:59 Pantoprazole Sodium (Pantoprazole Inj 40 Mg Vial) 40 mg IV BID ROEL Stop: 09/29/24 08:59 Discontinued Medications Cyanocobalamin (Cyanocobalamin Inj 1,000 Mcg/Ml Vial) 1,000 mcg IM X1 ONE Stop: 08/29/24 16:36 Sodium Chloride (Ns) 1,000 mls @ 999 mls/hr IV .Q1H1M ONE Stop: 08/29/24 12:52 Last Infusion: 08/29/24 13:21 Dose: Infused Pantoprazole Sodium (Pantoprazole Inj 40 Mg Vial) 40 mg IV QDAY ROEL Stop: 09/28/24 15:44 Last Admin: 08/29/24 16:09 Dose: 40 mg Assessment & Plan Plan Assessment Milo is a 69 y/o male with past medical history of RONI, hypertension, (? Crohn's disease, diagnosed 3 days ago) who is admitted for GI bleed. GI has been consulted for further workup of patient #Acute blood loss anemia #Symptomatic anemia #GI bleed #GERD Patient's hemoglobin seems to be 14 at baseline, however patient came in with a hemoglobin of 8.4 and endorses episodes of black tarry stools 3-4 times over the past 3 to 4 days He is symptomatic with weakness and had possibly blacked out He was apparently diagnosed with Crohn's recently and has had previous colonoscopy and endoscopy, however we do not have records of this at this time Patient will need further workup, appears to be dry and intravascularly volume depleted He denies taking any blood thinners, however patient has had abdominal what seems to be gastritis symptoms for a long time now does take omeprazole and also takes ibuprofen what appears to be on home rec review Status post 2 L bolus FOBT positive Plan: ? GI consulted, appreciate recs ? Type and screen ? IV fluids 120 cc an hour ? Iron studies ? B12 with folate ? 2 PRBCs have been ordered for him but have not been transfused at this time, will consider transfusing later if needed ? N.p.o. at midnight ? H&H at 2300 ? Avoiding any blood thinners including NSAIDs as well ? Protonix 40 mg #? History of Crohn's disease Patient says he has Crohn's disease No record of diascopy Upon med rec do not see any medicines at this time for Crohn's disease Patient denies having any watery bowel movements Plan: ? Will investigate further to resume any other home medicines related to Crohn's ?Resume home dicyclomine 20 mg 3 times daily as needed #? History of hypertension No home blood pressure medicines seen on med rec Plan: ? Will resume home blood pressure medicines if needed #History of RONI Plan: ? Will resume home Xanax 1 mg twice daily ? Will resume home Lexapro 5 mg ? Will resume home Wellbutrin 150 mg #Health Maintenance Disposition: Telemetry DVT prophylaxis: SCDs GI prophylaxis: Protonix Diet: N.p.o. at midnight CODE STATUS: Full Patient seen and care discussed with my senior resident, Dr. Oscar , and my attending physician, Dr. Misael Villagomez, PGY-1 Attending Provider Attestation/Addendum I reviewed labs, imaging, EKG, home medications and prior available records. Face to face evaluation was performed by me. I have personally examined the patient and discussed assessment and plan with the IM team. I reviewed the resident note and agree with the plan with exceptions as below. 69-year-old male who presented with bright blood per rectum. He was found to have acute anemia in the setting of lower GI bleed GI bleed: Likely lower. Acute anemia Possible inflammatory bowel disease Consulted GI Trend H&H IV fluids Avoid NSAIDs
[2024-08-29 17:29] LABS: Carcinoembryonic Antigen 1.1 ng/mL (0.0-5.0)
[2024-08-29 17:36] LABS: Prostate Specific Antigen 1.18 ng/mL (0-4.00); Total Iron Binding Capacity 310 mcg/dL (250-425)
[2024-08-29] MEDS: IRON SUCROSE CPLX INJ 20 MG/ML VIAL 5 ML 200 MG IVP (17:41)
[2024-08-29] MEDS: RINGERS LACTATED 1000 ML 1,000 ML 999 ML IV (17:50)
[2024-08-29] MEDS: CYANOCOBALAMIN INJ 1,000 mCg/ML VIAL 1000 MCG IM (17:55)
[2024-08-29 18:25] LABS: Iron 86 mcg/dL (65-175); Percent Iron Saturation 27 % (20-55); Unsaturated Iron Binding 224 (225-295)
--- NOTE | 2024-08-29 20:23 | PC.NURSE ---
pt talking loud and singing loudly in room. asked patient to lower his voice because he is being to loud. pt responded okay . pt then sat down on mattress and stopped yelling at this time.
[2024-08-29] MEDS: ALPRazoLAM 0.25 MG TABLET 1 MG PO (20:48)
[2024-08-29] MEDS: FOLIC ACID 1 MG TABLET PO (20:49)
[2024-08-29] MEDS: DICYCLOMINE 10 MG CAPSULE 20 MG PO (20:50)
--- NOTE | 2024-08-29 21:12 | PD.IMCONS ---
HPI Data of Consult Requesting Physician: Lizy Villagomez MD Primary Care Provider: Erendira North NP Consult Narrative Reason for consult: Bloody stools FOBT positive History of present illness: 69 years old male brought into the hospital because he passed out and was found to have bloody stools which has been going on for 3 days hemoglobin hematocrit was 8.3 and 24.8 with a WBC count of 10.7 BUN 54 creatinine 1.1 and a platelet count of 238,000 he had an abdominal ultrasound which showed absent gallbladder last month solid mass right kidney 2.2 x 1.[address] scan of the abdomen pelvis done today with contrast showed prominent head of the pancreas which was about 3.8 cm MRCP and MRI with and without contrast showed prominent head of the pancreas otherwise negative Normal CBD and normal pancreatic duct Patient was subsequently admitted cc:: cc: Lizy Villagomez MD Review of Systems Review of Systems Systems Reviewed: All systems reviewed, normal except as documented Past Medical History Surgical History OTHER SURGICAL HX: Anxiety neurosis depression BPH related issues Meds Home Medications and Allergies Home Medications ?Medication ?Instructions ?Recorded ?Confirmed ?Type alprazolam 1 mg tablet 1 mg PO BID ##0 11/01/07 01/03/20 History bupropion HCl 150 mg 24 hr tablet, 150 mg PO QPM ##0 11/01/07 01/03/20 History extended release (Wellbutrin XL) bupropion HCl 300 mg 24 hr tablet, 300 mg PO QAM ##0 11/01/07 01/03/20 History extended release (Wellbutrin XL) dutasteride 0.5 mg capsule 0.5 mg PO DAILY ##0 11/01/07 01/03/20 History (Avodart) omeprazole 20 mg capsule,delayed 20 mg PO QDAY ##0 03/22/17 01/03/20 History release escitalopram oxalate 5 mg tablet 5 mg PO QDAY #0 tabs 03/23/17 01/03/20 History (Lexapro) Allergies Allergy/AdvReac Type Severity Reaction Status Date / Time No Known Allergies Allergy Verified 08/29/24 10:05 Exam Vital Signs Temp Pulse Resp BP Pulse Ox O2 Del Method 98.8 F 94 18 98/61 99 Room Air 08/29/24 19:29 08/29/24 19:29 08/29/24 19:29 08/29/24 19:29 08/29/24 19:29 08/29/24 19:29 Constitutional Comments: Alert oriented Routine Respiratory Exam Comments: Normal to auscultation Routine Abdominal Exam Comments: Soft nontender Results Labs 08/29/24 10:53 08/29/24 10:53 Labs: Short CBC 08/29/24 Range/Units 10:53 WBC 10.7 H (3.8-10.6) Thou/mm3 Hgb 8.3 L (13.5-16.0) g/dL Hct 24.8 L (41.0-53.0) % Plt Count 238 D (140-440) Thou/mm3 BMP 08/29/24 10:53 Sodium 138 Potassium 4.8 Chloride 110 H Carbon Dioxide 23.2 BUN 54 H Creatinine 1.1 Glucose 250 H Calcium 8.4 Cardiac Enzymes 08/29/24 Range/Units 10:53 Troponin I < 0.020 (0.0-0.045) ng/mL Liver Function 08/29/24 Range/Units 10:53 Total Bilirubin 0.3 (0.3-1.2) mg/dL AST 27 (0-34) U/L ALT 16 (10-49) U/L Alkaline Phosphatase 69 (46-116) U/L Albumin 3.5 (3.4-4.8) gm/dL Urine 08/29/24 Range/Units 11:05 Urine Color Lt-Yellow (Lt Yel-Yel) Urine Clarity Clear (Clear/Hazy) Urine pH 6.5 (5.0-7.0) Ur Specific [place] 1.022 (1.001-1.035) Urine Protein Negative (Neg - Trace) Urine Glucose (UA) 3+ A (Negative) Assessment and Plan Additional Assessment & Plan Additional Plan: # Bloody stools etiology uncertain # Prominent head of the pancreas with negative MRI pre and postcontrast and negative MRCP Plan CA 19?9 level Recommend EUS with possible biopsy of the head of the pancreas or repeat MRI. Pre And postcontrast and 6 months Clear liquid diet GoLytely prep Consent obtained for fiberoptic colonoscopy with possible biopsy possible therapeutic intervention under MAC as intravenous moderate sedation will not work for this patient because of multiple medications Other medical problems include Anxiety neurosis Depression BPH related issues Thank you very much for the opportunity to participate in the care of this patient
[2024-08-29] MEDS: NA SU/NAHCO3/KC/PEG (Golytely) 4,000 ML BTL 4000 ML PO (22:06)
[2024-08-29] MEDS: QUEtiapine FUMARATE 25 MG TABLET 50 MG PO (23:08)
[2024-08-29 23:49] LABS: Hematocrit 18.9 % (41.0-53.0); Hemoglobin 6.3 g/dL (13.5-16.0)
[2024-08-30] VITALS (15 sets, daily range): BP systolic 84–112; BP diastolic 56–66; PULSE 91–111; RESP 15–27; TEMP 36.2–37.6; O2SAT 92–97; BMI 26.2
[2024-08-30 06:10] LABS: Basophils % (Auto) 0 % (0-2.5); Eosinophils # (Auto) 0.1 Thou/mm3 (0.0-0.5); Eosinophils % (Auto) 1 % (0-10); Hematocrit 22.3 % (41.0-53.0); Immature Granulocytes % (Auto) 0 % (0-0); Immature Granulocytes Auto 0.03 Thou/mm3 (0.00-0.00); Lymphocytes # (Auto) 1.2 Thou/mm3 (1.0-4.8); Lymphocytes % (Auto) 14 % (10-50); Mean Corpuscular HGB Conc 34.1 g/dl (31.0-37.0); Mean Corpuscular Hemoglobin 29.1 pg (25.0-35.0); Mean Corpuscular Volume 85 fL (80-100); Monocytes # (Auto) 0.6 Thou/mm3 (0.0-0.8); Monocytes % (Auto) 7 % (0-12); Neutrophils # (Auto) 6.9 Thou/mm3 (1.8-7.7); Neutrophils % (Auto) 78 % (37-80); Nucleated Red Blood Cell % 0 /100 WBC (0); Platelet Count 158 Thou/mm3 (140-440); RDW Standard Deviation 43.8 fL (35.1-43.9); Red Blood Count 2.61 Miln/mm3 (4.50-5.90); White Blood Count 8.8 Thou/mm3 (3.8-10.6)
[2024-08-30 06:13] LABS: INR 1.2 (0.9-1.3); Partial Thromboplastin Time 22.5 Seconds (22.0-36.0); Prothrombin Time 12.8 Seconds (9.0-12.2)
[2024-08-30 06:25] LABS: Hemoglobin 7.6 g/dL (13.5-16.0)
[2024-08-30 06:44] LABS: Albumin, Serum 2.7 gm/dL (3.4-4.8); Anion Gap 9 (7-16); BUN/Creatinine Ratio 31 Ratio (12-20); Blood Urea Nitrogen 25 mg/dL (9-23); C-Reactive Protein < 0.4 mg/dL (0.0-0.9); Calcium 7.4 mg/dL (8.3-10.6); Calcium (Corrected) 8.4 mg/dL (8.5-10.1); Carbon Dioxide 21.5 mMol/L (20.0-31.0); Cardiac Risk Estimate 4.7 RATIO (4.0-6.7); Chloride 113 mMol/L (98-107); Cholesterol 89 mg/dL (132-200); Creatinine (Component) 0.8 mg/dL (0.6-1.3); Estimated Creatinine Clearance 79.8 mL/min (>60); Glucose 137 mg/dL (74-106); HDL Cholesterol 19 mg/dL (40-60); LDL Cholesterol,Calculated 25 mg/dL (0-130); Magnesium 1.5 mg/dL (1.6-2.6); Osmolality,Calculated 291 (275-295); Phosphorous 1.8 mg/dL (2.4-5.1); Potassium 3.5 mMol/L (3.4-5.1); Sodium 143 mMol/L (136-145); Thyroid Stimulating Hormone 1.77 uIU/mL (0.55-4.78); Triglycerides 226 mg/dL (30-150); eGFR > 60 See Note
[2024-08-30] MEDS: SODIUM CHLORIDE 0.9% 1000 ML 1,000 ML 120 ML IV ×3 (06:44→23:53)
[2024-08-30 06:58] LABS: Glucose Estimated Average 114 mg/dL (80-131); Hemoglobin A1C 5.6 % Hgb (4.8-6.0)
--- NOTE | 2024-08-30 08:00 | PD.RESPRO ---
Documentation for date of: 08/30/24 Subjective Subjective Interval history: 08/30/2024: Pt examined at bedside today. No acute overnight events. Patient reports that he is doing well. Patient said that he got a colonoscopy for with his doctor at [place] in which she has all his doctors over there. He says he got his colonoscopy at [facility] in [facility]. Denying any chest pain or shortness of breath this time. Is tolerating clear liquid and GoLytely prep at this time. Has been having bowel movements. Not having any chest pain and does not feel weak at this time. No other complaints at this time. Hemoglobin 7.6 after PRBC transfusion, potassium 3.5, white count 8.6, BUN/creatinine 25 0.8. Blood pressure is 98/60 and afebrile and heart rate of 94. Exam Vital Signs Temp Pulse Resp BP Pulse Ox O2 Del Method 99.6 F 96 16 99/66 94 L Room Air 08/30/24 05:08/30/24 05:08/30/24 05:08/30/24 05:08/30/24 05:08/30/24 04:00 Narrative Exam General: AAOx3, NAD, wearing mask, appears to have dyed hair, looks younger than his actual age, Mosotho-speaking male but speaks anguillan well HEENT: Dry mucous membranes, conjunctiva clear, EOMI, PERRLA, Cardiovascular: S1, S2, radial pulses +2 bilat, tachycardic Pulmonary: CTAB bilat no cough, no wheezing GI: No tenderness to light or deep palpitation, no guarding, rigidity, rebound tenderness or distension Extremities: No presence of trace or pitting edema in lower extremities bilaterally, dorsalis pedis pulses +2 bilaterally, palms of hand feels stiff and dry and appear to be a bit pale, cap refill less than 2 Neuro: AAOx3, no focal motor or sensory deficits in the UE or LE bilat Psych: Good judgement, thought and behavior. Cooperative Objective Labs 08/31/24 05:33 08/31/24 05:33 Labs: Laboratory Results - last 24 hr 08/29/24 08/29/24 08/29/24 10:53 11:05 12:25 WBC 10.7 H RBC 2.88 L Hgb 8.3 L Hct 24.8 L MCV 86 MCH 28.8 MCHC 33.5 RDW Std Deviation 44.1 H Plt Count 238 D Neut % (Auto) 76 Lymph % (Auto) 17 [place] % (Auto) 6 Eos % (Auto) 1 Baso % (Auto) 0 Neut # (Auto) 8.2 H Lymph # (Auto) 1.8 [place] # (Auto) 0.6 Eos # (Auto) 0.1 Baso # (Auto) 0.0 Immature Gran # (Auto) 0.04 H Absolute Nucleated RBC 0.00 Immature Gran % 0 Nucleated RBC % 0 PT INR APTT Sodium 138 Potassium 4.8 Chloride 110 H Carbon Dioxide 23.2 Anion Gap 5 L BUN 54 H Creatinine 1.1 Estim Creat Clear Calc 58.0 L eGFR > 60 BUN/Creatinine Ratio 49 H Glucose [address] Glu mg/dL Hemoglobin A1c Calculated Osmolality 298 H Calcium 8.4 Corrected Calcium 8.8 Phosphorus Magnesium Iron 86 TIBC 310 Iron Saturation 27 Unsat Iron Binding 224 L Total Bilirubin 0.3 AST 27 ALT 16 Alkaline Phosphatase 69 Troponin I < 0.020 C-Reactive Prot, Quant Total Protein 5.7 Albumin 3.5 Globulin 2.2 L Albumin/Globulin Ratio 1.6 Triglycerides Cholesterol LDL Cholesterol, Calc HDL Cholesterol Cholesterol/HDL Ratio Lipase 39 Tumor Marker AFP 2.90 Carcinoembryonic Ag 1.1 Prostate Specific Ag 1.18 TSH Ur Collection Type Clean Catch Urine Color Lt-Yellow Urine Clarity Clear Urine pH 6.5 Ur Specific [place] 1.022 Urine Protein Negative Urine Glucose (UA) 3+ A Urine Ketones Negative Urine Blood Negative Urine Nitrite Negative Urine Bilirubin Negative Urine Urobilinogen (Auto) Negative Ur Leukocyte Esterase Negative Urine RBC < 1 Urine WBC 1 Ur Squamous Epith Cells < 1 Urine Bacteria None Stool Occult Blood Positive A Ethyl Alcohol < 3.0 Blood Type O Positive Antibody Screen NEGATIVE Crossmatch See Detail Blood Bank Wristband ID Yes 08/29/24 08/30/24 23:04 05:40 WBC 8.8 RBC 2.61 L Hgb 6.3 L* D 7.6 L D Hct 18.9 L* 22.3 L MCV 85 MCH 29.1 MCHC 34.1 RDW Std Deviation 43.8 Plt Count 158 D Neut % (Auto) 78 Lymph % (Auto) 14 [place] % (Auto) 7 Eos % (Auto) 1 Baso % (Auto) 0 Neut # (Auto) 6.9 Lymph # (Auto) 1.2 Wake # (Auto) 0.6 Eos # (Auto) 0.1 Baso # (Auto) 0.0 Immature Gran # (Auto) 0.03 H Absolute Nucleated RBC 0.00 Immature Gran % 0 Nucleated RBC % 0 PT 12.8 H INR 1.2 APTT 22.5 Sodium 143 Potassium 3.5 D Chloride 113 H Carbon Dioxide 21.5 Anion Gap 9 BUN 25 H Creatinine 0.8 Estim Creat Clear Calc 79.8 eGFR > 60 BUN/Creatinine Ratio 31 H Glucose [address] Glu mg/dL 114 Hemoglobin A1c 5.6 Calculated Osmolality 291 Calcium 7.4 L Corrected Calcium 8.4 L Phosphorus 1.8 L Magnesium 1.5 L Iron TIBC Iron Saturation Unsat Iron Binding Total Bilirubin AST ALT Alkaline Phosphatase Troponin I C-Reactive Prot, Quant < 0.4 Total Protein Albumin 2.7 L D Globulin Albumin/Globulin Ratio Triglycerides 226 H Cholesterol 89 L LDL Cholesterol, Calc 25 HDL Cholesterol 19 L Cholesterol/HDL Ratio 4.7 Lipase Tumor Marker AFP Carcinoembryonic Ag Prostate Specific Ag TSH 1.77 Ur Collection Type Urine Color Urine Clarity Urine pH Ur Specific [place] Urine Protein Urine Glucose (UA) Urine Ketones Urine Blood Urine Nitrite Urine Bilirubin Urine Urobilinogen (Auto) Ur Leukocyte Esterase Urine RBC Urine WBC Ur Squamous Epith Cells Urine Bacteria Stool Occult Blood Ethyl Alcohol Blood Type Antibody Screen Crossmatch Blood Bank Wristband ID Quality Measures Quality Measures none Advance care planning discussed with:: patient Assessment & Plan Assessment Current Active Medications: Generic Name Dose Route Start Last Admin Trade Name Freq PRN Reason Stop Dose Admin Acetaminophen 650 mg 08/29/24 18:34 Acetaminophen 325 Mg Tablet PO 09/28/24 18:33 Q6H PRN Fever >101.5 or pain 1-3 Hydrocodone Bitart/Acetaminophen 1 tab 08/29/24 18:34 Hydrocodone/Apap 5/325 Tablet PO 09/03/24 18:33 Q4HR PRN PAIN SCALE 4-6 (Moderate Alprazolam 1 mg 08/29/24 21:00 08/29/24 20:48 Alprazolam 0.25 Mg Tablet PO 09/03/24 20:59 1 mg BID ROEL Administration Bupropion HCl 150 mg 08/30/24 09:00 Bupropion Hcl Xl 150 Mg Tabcr PO 09/29/24 08:59 QDAY ROEL Dicyclomine HCl 20 mg 08/29/24 22:00 08/30/24 05:50 Dicyclomine 10 Mg Capsule PO 09/28/24 21:59 Not Given TID ROEL Escitalopram Oxalate 5 mg 08/30/24 09:00 Escitalopram Oxalate 10 Mg Tablet PO 09/29/24 08:59 QDAY ROEL Folic Acid 1 mg 08/29/24 21:00 08/29/24 20:49 Folic Acid 1 Mg Tablet PO 09/28/24 20:59 1 mg BID ROEL Administration Sodium Chloride 1,000 mls @ 120 mls/hr 08/29/24 15:35 08/30/24 06:44 Ns IV 09/28/24 15:34 120 mls/hr .[id number] ROEL Administration Magnesium Sulfate 4 gm in 50 mls @ 12.5 mls/hr 08/30/24 07:57 Magnesium Sulfate Ivpb IV 08/30/24 11:56 X1 ONE Iron Sucrose 200 mg 08/29/24 18:00 08/29/24 17:41 Iron Sucrose Cplx Inj 20 Mg/Ml Vial 5 Ml IVP 09/02/24 17:59 200 mg DAILY ROEL Administration Ondansetron HCl 4 mg 08/29/24 18:34 Ondansetron Inj 2 Mg/Ml Inj 2 Ml IV 09/28/24 18:33 Q6H PRN NAUSEA OR VOMITING Protocol Pantoprazole Sodium 40 mg 08/30/24 09:00 Pantoprazole Inj 40 Mg Vial IV 09/29/24 08:59 BID ROEL Potassium Chloride 40 meq 08/30/24 07:57 Potassium Chloride 20 Meq Tabcr PO 08/30/24 07:58 X1 ONE Potassium Phos/Sodium Phos 2 packet 08/30/24 07:57 Naph,Count Includes [facility] Mbdb 1 Packet (1.5 Gm) PO 08/30/24 07:58 X1 ONE Quetiapine Fumarate 50 mg 08/29/24 22:45 08/29/24 23:08 Quetiapine Fumarate 25 Mg Tablet PO 09/28/24 22:44 50 mg .QHS ROEL Administration Plan Assessment Milo is a 69 y/o male with past medical history of RONI, hypertension, (? Crohn's disease, diagnosed 3 days ago) who is admitted for GI bleed. GI has been consulted for further workup of patient #Acute blood loss anemia #Symptomatic anemia #GI bleed #GERD #Hypoalbuminemia #Prominent pancreatic head Patient's hemoglobin seems to be 14 at baseline, however patient came in with a hemoglobin of 8.4 and endorses episodes of black tarry stools 3-4 times over the past 3 to 4 days He is symptomatic with weakness and had possibly blacked out He was apparently diagnosed with Crohn's recently and has had previous colonoscopy and endoscopy, however we do not have records of this at this time Patient will need further workup, appears to be dry and intravascularly volume depleted He denies taking any blood thinners, however patient has had abdominal what seems to be gastritis symptoms for a long time now does take omeprazole and also takes ibuprofen what appears to be on home rec review Status post 2 L bolus FOBT positive Repeat H&H last night showed hemoglobin below 7, transfuse 1 PRBC, hemoglobin this morning 7.6 Albumin 2.7, no history of liver problems however patient has prominent pancreatic head seen on MRI Denies weight loss, total bilirubin is unremarkable, will follow up with tumor marker Patient may need EUS biopsy or MRI pre and postcontrast MRI follow up within 3-6 months Will given one more bolus of fluid Oncology will follow, Dr. Mcclellan, does not recommend any additional imaging at this time and recommends to follow-up with CA 19?9 Plan: ? GI consulted, appreciate recs ? Oncology consulted, appreciate recs ? Type and screen ? IV fluids 120 cc an hour ? Albumin 25 g x1 ? B12 with folate ? 2 PRBCs have been ordered for him but have not been transfused at this time, will consider transfusing later if needed ? On GoLytely and clear liquid ? H&H at 1200 today ? Avoiding any blood thinners including NSAIDs as well ? Continue with Protonix 40 mg ? Follow-up CA 19?9 #? History of Crohn's disease Patient says he has Crohn's disease No record of diascopy Upon med rec do not see any medicines at this time for Crohn's disease Patient denies having any watery bowel movements Will try to obtain previous colonscopy records from [facility] in [place]? Plan: ? Will investigate further to resume any other home medicines related to Crohn's ? Resume home dicyclomine 20 mg 3 times daily as needed #? History of hypertension No home blood pressure medicines seen on med rec Plan: ? Will resume home blood pressure medicines if needed #History of RONI Gave seroquel last night Will consider resuming if it is home medicine Plan: ? Will resume home Xanax 1 mg twice daily ? Will resume home Lexapro 5 mg ? Will resume home Wellbutrin 150 mg #Health Maintenance Disposition: Telemetry DVT prophylaxis: SCDs GI prophylaxis: Protonix Diet: Clear liquid diet and GoLytely CODE STATUS: Full Patient seen and care discussed with my senior resident, Dr. Baptiste, and my attending physician, Dr. Misael Villagomez, PGY-1 Attending Provider Attestation/Addendum I reviewed labs, imaging, EKG, home medications and prior available records. Face to face evaluation was performed by me. I have personally examined the patient and discussed assessment and plan with the IM team. I reviewed the resident note and agree with the plan with exceptions as below. 69-year-old male who presented with bright blood per rectum. He was found to have acute anemia in the setting of lower GI bleed GI bleed: Likely lower. Acute anemia Possible inflammatory bowel disease Pancreatic mass Consulted GI: Will plan for colonoscopy. Started GoLytely Trend H&H: Hemoglobin dropped to less than 7. 1 PRBC transfused. Gave IV iron IV fluids Avoid NSAIDs MRCP did show pancreatic mass. Consulted oncology. Send tumor markers.
[2024-08-30] MEDS: ALPRazoLAM 0.25 MG TABLET 1 MG PO ×2 (08:36→21:09)
[2024-08-30] MEDS: POTASSIUM CHLORIDE 20 mEq TABCR 40 MEQ PO (08:36)
[2024-08-30] MEDS: Magnesium Sulfate 4 GM Ivpb 4 GM/50 ML BAG IV (08:36)
[2024-08-30] MEDS: ESCITALOPRAM OXALATE 10 MG TABLET 5 MG PO (08:36)
[2024-08-30] MEDS: SODIUM CHLORIDE 0.9% 1000 ML 1,000 ML 999 ML IV ×2 (08:36→23:30)
[2024-08-30] MEDS: FOLIC ACID 1 MG TABLET PO ×2 (08:37→21:09)
[2024-08-30] MEDS: PANTOPRAZOLE INJ 40 MG VIAL IV ×2 (08:37→21:09)
[2024-08-30] MEDS: NAPH,KPH MBDB 1 PACKET (1.5 GM) 2 PACKET PO (08:37)
[2024-08-30] MEDS: ALBUMIN HUMAN 25% IVPB 25 GM/100 ML BTL IV (09:03)
[2024-08-30] MEDS: IRON SUCROSE CPLX INJ 20 MG/ML VIAL 5 ML 200 MG IVP (10:57)
[2024-08-30] MEDS: BuPROPion HCL XL 150 MG TABCR PO (10:57)
[2024-08-30] MEDS: NA SU/NAHCO3/KC/PEG (Golytely) 4,000 ML BTL 4000 ML PO ×2 (10:57→22:23)
[2024-08-30 11:16] LABS: Sed Rate (ESR) < 1 mm/hr (0-20)
[2024-08-30 12:07] LABS: Hematocrit 22.6 % (41.0-53.0)
[2024-08-30 12:11] LABS: Hemoglobin 7.6 g/dL (13.5-16.0)
--- NOTE | 2024-08-30 13:09 | PD.ONCCONS ---
HPI Data of Consult Requesting Physician: Obinna Douglas MD Primary Care Provider: Erendira North NP Consult Narrative Reason for consult: Suspected GI malignancy History of present illness: 61-year-old gentleman admitted with bloody stools with hemoglobin 8.3 since dropped to 6.3, rising to 7.[address] scan abdomen pelvis revealed prominent pancreatic head 3.8 cm, MRI abdomen measured 3.9 cm pancreatic head with possible hemangioma right lobe of the liver there was no dilated pancreatic duct. MRCP pancreatic head measured 4.5 cm with no dilated pancreatic duct, tumor marker CA 19?9 pending with AFP CEA PSA being within normal limits. Bilirubin AST ALT alk phos are all in normal range. Colonoscopy is being planned after being seen by Dr. Carter. Patient now referred for oncological consultation. cc:: cc: Obinna Douglas MD Past Medical History Family History OTHER FAMILY HX: Noncontributory Past Medical History Comments PMH COMMENT: Prior cholecystectomy penile implant surgery hypertension possible Crohn's disease Meds Home Medications and Allergies Home Medications ?Medication ?Instructions ?Recorded ?Confirmed ?Type alprazolam 1 mg tablet 1 mg PO BID ##0 11/01/07 08/29/24 History bupropion HCl 150 mg 24 hr tablet, 150 mg PO QAM ##0 11/01/07 08/29/24 History extended release (Wellbutrin XL) bupropion HCl 300 mg 24 hr tablet, 300 mg PO QAM ##0 11/01/07 08/29/24 History extended release (Wellbutrin XL) ergocalciferol (vitamin D2) 1,250 50,000 unit PO QWEEK 08/29/24 08/29/24 History mcg (50,000 unit) capsule gemfibrozil 600 mg tablet 600 mg PO BID 08/29/24 08/29/24 History quetiapine 50 mg tablet 50 mg PO .QHS 08/29/24 08/29/24 History Allergies Allergy/AdvReac Type Severity Reaction Status Date / Time No Known Allergies Allergy Verified 08/29/24 10:05 Exam Vital Signs Temp Pulse Resp BP Pulse Ox O2 Del Method 97.2 F 95 19 98/60 97 Room Air 08/30/24 12:00 08/30/24 12:00 08/30/24 12:00 08/30/24 12:00 08/30/24 12:00 08/30/24 12:00 Narrative Exam Appearing comfortable lying in no acute distress Results Labs 08/30/24 11:55 08/30/24 05:40 Labs: Short CBC 08/29/24 08/30/24 08/30/24 Range/Units 23:04 05:40 11:55 WBC 8.8 (3.8-10.6) Thou/mm3 Hgb 6.3 L* D 7.6 L D 7.6 L (13.5-16.0) g/dL Hct 18.9 L* 22.3 L 22.6 L (41.0-53.0) % Plt Count 158 D (140-440) Thou/mm3 BMP 08/30/24 05:40 Sodium 143 Potassium 3.5 D Chloride 113 H Carbon Dioxide 21.5 BUN 25 H Creatinine 0.8 Glucose 137 H D Calcium 7.4 L Liver Function 08/30/24 Range/Units 05:40 Albumin 2.7 L D (3.4-4.8) gm/dL Assessment and Plan Additional Assessment & Plan Additional Plan: 1. Admitted with lower GI bleeding and significant anemia. Awaiting colonoscopy, Dr. Carter. 2. Imaging studies indicate enlarged pancreatic head; CA 19?9 pending. PSA CEA AFP in normal range. 3. Will follow. Thank you for allowing me to evaluate this patient.
[2024-08-30] MEDS: DICYCLOMINE 10 MG CAPSULE 20 MG PO ×2 (13:28→21:09)
[2024-08-30 17:52] LABS: Hematocrit 22.5 % (41.0-53.0)
[2024-08-30 17:57] LABS: Hemoglobin 7.6 g/dL (13.5-16.0)
[2024-08-30] MEDS: QUEtiapine FUMARATE 25 MG TABLET 50 MG PO (21:09)
--- NOTE | 2024-08-30 21:24 | PD.IMPROG ---
Documentation for date of: 08/30/24 Subjective Subjective Interval history: Patient evaluated he was on the schedule for colonoscopy but he is not clear he will get additional GoLytely Exam Vital Signs Temp Pulse Resp BP Pulse Ox O2 Del Method 98.2 F 100 27 H 103/63 97 Room Air 08/30/24 20:00 08/30/24 20:00 08/30/24 20:00 08/30/24 20:00 08/30/24 20:00 08/30/24 20:00 Constitutional Comments: Alert oriented Routine Respiratory Exam Comments: Normal to auscultation Routine Abdominal Exam Comments: Soft nontender positive bowel sounds Objective Labs 08/30/24 16:49 08/30/24 05:40 Labs: Laboratory Results - last 24 hr 08/29/24 08/29/24 08/30/24 10:53 23:04 05:40 WBC 8.8 RBC 2.61 L Hgb 6.3 L* D 7.6 L D Hct 18.9 L* 22.3 L MCV 85 MCH 29.1 MCHC 34.1 RDW Std Deviation 43.8 Plt Count 158 D Neut % (Auto) 78 Lymph % (Auto) 14 [place] % (Auto) 7 Eos % (Auto) 1 Baso % (Auto) 0 Neut # (Auto) 6.9 Lymph # (Auto) 1.2 [place] # (Auto) 0.6 Eos # (Auto) 0.1 Baso # (Auto) 0.0 Immature Gran # (Auto) 0.03 H Absolute Nucleated RBC 0.00 Immature Gran % 0 Nucleated RBC % 0 ESR < 1 PT 12.8 H INR 1.2 APTT 22.5 Sodium 143 Potassium 3.5 D Chloride 113 H Carbon Dioxide 21.5 Anion Gap 9 BUN 25 H Creatinine 0.8 Estim Creat Clear Calc 79.8 eGFR > 60 BUN/Creatinine Ratio 31 H Glucose [address] Glu mg/dL 114 Hemoglobin A1c 5.6 Calculated Osmolality 291 Calcium 7.4 L Corrected Calcium 8.4 L Phosphorus 1.8 L Magnesium 1.5 L C-Reactive Prot, Quant < 0.4 Albumin 2.7 L D Triglycerides 226 H Cholesterol 89 L LDL Cholesterol, Calc 25 HDL Cholesterol 19 L Cholesterol/HDL Ratio 4.7 TSH 1.77 Blood Type O Positive Antibody Screen NEGATIVE Crossmatch See Detail Blood Bank Wristband ID Yes 08/30/24 08/30/24 11:55 16:49 WBC RBC Hgb 7.6 L 7.6 L Hct 22.6 L 22.5 L MCV MCH MCHC RDW Std Deviation Plt Count Neut % (Auto) Lymph % (Auto) [place] % (Auto) Eos % (Auto) Baso % (Auto) Neut # (Auto) Lymph # (Auto) [place] # (Auto) Eos # (Auto) Baso # (Auto) Immature Gran # (Auto) Absolute Nucleated RBC Immature Gran % Nucleated RBC % ESR PT INR APTT Sodium Potassium Chloride Carbon Dioxide Anion Gap BUN Creatinine Estim Creat Clear Calc eGFR BUN/Creatinine Ratio Glucose Estimated Ave Glu mg/dL Hemoglobin A1c Calculated Osmolality Calcium Corrected Calcium Phosphorus Magnesium C-Reactive Prot, Quant Albumin Triglycerides Cholesterol LDL Cholesterol, Calc HDL Cholesterol Cholesterol/HDL Ratio TSH Blood Type Antibody Screen Crossmatch Blood Bank Wristband ID Impressions Impression: # Hematochezia Schedule for colonoscopy with biopsies tomorrow with additional GoLytely Assessment & Plan A&P Narrative 1. Admitted with lower GI bleeding and significant anemia. Awaiting colonoscopy, Dr. Carter. 2. Imaging studies indicate enlarged pancreatic head; CA 19?9 pending. PSA CEA AFP in normal range. 3. Will follow. Thank you for allowing me to evaluate this patient. Time Spent With Patient Time: Total time spent is greater than 50% in coordination of care (as documented) at patient's floor/unit and/or counseling patient:
[2024-08-30 23:44] LABS: Lactate (Lactic Acid) 0.8 mMol/L (0.4-2.0)
--- NOTE | 2024-08-30 23:45 | PD.RESEVENT ---
Documentation for date of: 08/30/24 Event Note Event Note: At 11:20 PM, RR called as patient found hypotensive with BP 85/45 (MAP 58), HR 102. Patient was satting well on high flow. Alert and oriented x3, complaining of lightheadedness and dizziness. We gave 1L NS bolus and order H&H which came back as Hgb 6.0 and HCT 18.0. We transfused 1 unit pRBC and ordered post-trans H&H. His BP improved before completing 1L NS, MAP was 66 at the time we left bedside. Patient report improved dizzness and lightheadedness. Denies chest pain or sob. Patient case was discussed with attending, Chico Tran MD. Forrest Ruffin DO PGYI
[2024-08-31] VITALS (20 sets, daily range): BP systolic 82–124; BP diastolic 45–75; PULSE 71–107; RESP 14–27; TEMP 36.3–37.2; O2SAT 94–100; BMI 27.8
--- NOTE | 2024-08-31 02:20 | PC.NURSE ---
Per Hospitalist, , notified of current B/Ps during blood transfusion, (MAP 62), clarified what rate would like blood transfusion, currently at 200ml/hr, per MD okay to run at 500 ml/hr, monitoring vital signs and pt closely. see TAR and V/S
[2024-08-31 05:53] LABS: Basophils % (Auto) 1 % (0-2.5); Eosinophils # (Auto) 0.1 Thou/mm3 (0.0-0.5); Eosinophils % (Auto) 2 % (0-10); Hematocrit 23.6 % (41.0-53.0); Immature Granulocytes % (Auto) 1 % (0-0); Immature Granulocytes Auto 0.04 Thou/mm3 (0.00-0.00); Lymphocytes # (Auto) 1.5 Thou/mm3 (1.0-4.8); Lymphocytes % (Auto) 23 % (10-50); Mean Corpuscular HGB Conc 33.9 g/dl (31.0-37.0); Mean Corpuscular Hemoglobin 29.3 pg (25.0-35.0); Mean Corpuscular Volume 86 fL (80-100); Monocytes # (Auto) 0.7 Thou/mm3 (0.0-0.8); Monocytes % (Auto) 11 % (0-12); Neutrophils % (Auto) 63 % (37-80); Nucleated Red Blood Cell # 0.02 Thou/mm3 (0.00-0.00); Nucleated Red Blood Cell % 0 /100 WBC (0); Platelet Count 130 Thou/mm3 (140-440); RDW Standard Deviation 44.4 fL (35.1-43.9); Red Blood Count 2.73 Miln/mm3 (4.50-5.90); White Blood Count 6.3 Thou/mm3 (3.8-10.6)
[2024-08-31] MEDS: DICYCLOMINE 10 MG CAPSULE 20 MG PO ×2 (06:18→21:41)
[2024-08-31 06:28] LABS: Albumin, Serum 2.9 gm/dL (3.4-4.8); Anion Gap 8 (7-16); BUN/Creatinine Ratio 11 Ratio (12-20); Blood Urea Nitrogen 9 mg/dL (9-23); Calcium 7.4 mg/dL (8.3-10.6); Calcium (Corrected) 8.3 mg/dL (8.5-10.1); Carbon Dioxide 21.2 mMol/L (20.0-31.0); Chloride 115 mMol/L (98-107); Creatinine (Component) 0.8 mg/dL (0.6-1.3); Estimated Creatinine Clearance 86.9 mL/min (>60); Glucose 113 mg/dL (74-106); Magnesium 1.9 mg/dL (1.6-2.6); Osmolality,Calculated 286 (275-295); Phosphorous 1.3 mg/dL (2.4-5.1); Potassium 3.6 mMol/L (3.4-5.1); Sodium 144 mMol/L (136-145); eGFR > 60 See Note
[2024-08-31] MEDS: SODIUM CHLORIDE 0.9% 1000 ML 1,000 ML 120 ML IV ×2 (08:34→16:11)
[2024-08-31] MEDS: IRON SUCROSE CPLX INJ 20 MG/ML VIAL 5 ML 200 MG IVP (09:21)
[2024-08-31] MEDS: ALPRazoLAM 0.25 MG TABLET 1 MG PO ×2 (09:22→21:40)
[2024-08-31] MEDS: FOLIC ACID 1 MG TABLET PO ×2 (09:22→21:44)
[2024-08-31] MEDS: ESCITALOPRAM OXALATE 10 MG TABLET 5 MG PO (09:22)
[2024-08-31] MEDS: POTASSIUM PHOS 22.5 MMOL in SODIUM CHLORIDE 0.9% 500 ML 500 ML 82.778 MMOL IV (09:23)
[2024-08-31] MEDS: BuPROPion HCL XL 150 MG TABCR 450 MG PO (09:23)
[2024-08-31] MEDS: PANTOPRAZOLE INJ 40 MG VIAL IV ×2 (09:24→21:44)
--- NOTE | 2024-08-31 14:14 | PD.RESPRO ---
Documentation for date of: 08/31/24 Subjective Subjective Interval history: Patient was seen and examined at bedside. Overnight his hemoglobin dropped to 6.0, blood transfusion was done with repeat hemoglobin of 8. Patient does not have any complaints today. He continues to have bloody bowel movements. Dr. Carter is planning to do colonoscopy tonight for him. Family member at the bedside insisting to discharge patient right after colonoscopy or they will leave AMA, however primary team explained them that patient is in high risk developing significant bleeding. Exam Vital Signs Temp Pulse Resp BP Pulse Ox O2 Del Method 97.4 F 87 14 119/71 97 Room Air 08/31/24 12:00 08/31/24 12:00 08/31/24 12:00 08/31/24 12:08/31/24 12:08/31/24 12:00 Narrative Exam Gen: Well-developed and well-nourished. HEENT: NCAT, PERRLA, EOMI, MMM, anicteric conjunctivae. CVS: normal S1 and S2. RRR. No M/R/G. Resp: CTA B/L. No rhonchi, rales, crackles or wheezing. Abd: soft, non-tender, non-distended. BS+ in all 4 quadrants. MSK: Good ROM in BUE & BLE. No edema or rash. Neuro: CN II-XII grossly intact. Strength 5/5 in BUE & BLE. Alert and oriented x3. Psych: appropriate mood and affect. Objective Labs 08/31/24 05:33 08/31/24 05:33 Labs: Laboratory Results - last 24 hr 08/29/24 08/30/24 08/30/24 10:53 16:49 23:33 WBC RBC Hgb 7.6 L 6.0 L* D Hct 22.5 L 18.0 L* MCV MCH MCHC RDW Std Deviation Plt Count Neut % (Auto) Lymph % (Auto) [place] % (Auto) Eos % (Auto) Baso % (Auto) Neut # (Auto) Lymph # (Auto) [place] # (Auto) Eos # (Auto) Baso # (Auto) Immature Gran # (Auto) Absolute Nucleated RBC Immature Gran % Nucleated RBC % Sodium Potassium Chloride Carbon Dioxide Anion Gap BUN Creatinine Estim Creat Clear Calc eGFR BUN/Creatinine Ratio Glucose Calculated Osmolality Lactic Acid 0.8 Calcium Corrected Calcium Phosphorus Magnesium Albumin Blood Type O Positive Antibody Screen NEGATIVE Crossmatch See Detail Blood Bank Wristband ID Yes 08/31/24 05:33 WBC 6.3 RBC 2.73 L Hgb 8.0 L D Hct 23.6 L MCV 86 MCH 29.3 MCHC 33.9 RDW Std Deviation 44.4 H Plt Count 130 L Neut % (Auto) 63 Lymph % (Auto) 23 [place] % (Auto) 11 Eos % (Auto) 2 Baso % (Auto) 1 Neut # (Auto) 4.0 Lymph # (Auto) 1.5 [place] # (Auto) 0.7 Eos # (Auto) 0.1 Baso # (Auto) 0.0 Immature Gran # (Auto) 0.04 H Absolute Nucleated RBC 0.02 H Immature Gran % 1 H Nucleated RBC % 0 Sodium 144 Potassium 3.6 Chloride 115 H Carbon Dioxide 21.2 Anion Gap 8 BUN 9 Creatinine 0.8 Estim Creat Clear Calc 86.9 eGFR > 60 BUN/Creatinine Ratio 11 L Glucose 113 H Calculated Osmolality 286 Lactic Acid Calcium 7.4 L Corrected Calcium 8.3 L Phosphorus 1.3 L Magnesium 1.9 Albumin 2.9 L Blood Type Antibody Screen Crossmatch Blood Bank Wristband ID Quality Measures Quality Measures none Advance care planning discussed with:: patient and spouse Assessment & Plan Assessment Current Active Medications: Generic Name Dose Route Start Last Admin Trade Name Freq PRN Reason Stop Dose Admin Acetaminophen 650 mg 08/29/24 18:34 Acetaminophen 325 Mg Tablet PO 09/28/24 18:33 Q6H PRN Fever >101.5 or pain 1-3 Hydrocodone Bitart/Acetaminophen 1 tab 08/29/24 18:34 Hydrocodone/Apap 5/325 Tablet PO 09/03/24 18:33 Q4HR PRN PAIN SCALE 4-6 (Moderate Alprazolam 1 mg 08/29/24 21:00 08/31/24 09:22 Alprazolam 0.25 Mg Tablet PO 09/03/24 20:59 1 mg BID ROEL Administration Bupropion HCl 450 mg 08/31/24 09:00 08/31/24 09:23 Bupropion Hcl Xl 150 Mg Tabcr PO 09/30/24 08:59 450 mg QDAY ROEL Administration Dicyclomine HCl 20 mg 08/29/24 22:00 08/31/24 06:18 Dicyclomine 10 Mg Capsule PO 09/28/24 21:59 20 mg TID ROEL Administration Escitalopram Oxalate 5 mg 08/30/24 09:00 08/31/24 09:22 Escitalopram Oxalate 10 Mg Tablet PO 09/29/24 08:59 5 mg QDAY ROEL Administration Folic Acid 1 mg 08/29/24 21:00 08/31/24 09:22 Folic Acid 1 Mg Tablet PO 09/28/24 20:59 1 mg BID ROEL Administration Sodium Chloride 1,000 mls @ 120 mls/hr 08/29/24 15:35 08/31/24 08:34 Ns IV 09/28/24 15:34 120 mls/hr .Q8H20M ROEL Administration Iron Sucrose 200 mg 08/29/24 18:00 08/31/24 09:21 Iron Sucrose Cplx Inj 20 Mg/Ml Vial 5 Ml IVP 09/02/24 17:59 200 mg DAILY ROEL Administration Ondansetron HCl 4 mg 08/29/24 18:34 Ondansetron Inj 2 Mg/Ml Inj 2 Ml IV 09/28/24 18:33 Q6H PRN NAUSEA OR VOMITING Protocol Pantoprazole Sodium 40 mg 08/30/24 09:00 08/31/24 09:24 Pantoprazole Inj 40 Mg Vial IV 09/29/24 08:59 40 mg BID ROEL Administration Quetiapine Fumarate 50 mg 08/29/24 22:45 08/30/24 21:09 Quetiapine Fumarate 25 Mg Tablet PO 09/28/24 22:44 50 mg .QHS ROEL Administration Plan Mr. Pedraza is a 69 y/o male with past medical history of RONI, hypertension, (? Crohn's disease, diagnosed 3 days ago) who is admitted for GI bleed. GI has been consulted for further workup of patient #Acute blood loss anemia. #Symptomatic anemia. #GI bleed. #GERD. #Hypoalbuminemia. #Prominent pancreatic head. Patient's hemoglobin seems to be 14 at baseline, however patient came in with a hemoglobin of 8.4 and endorses episodes of black tarry stools 3-4 times over the past 3 to 4 days He is symptomatic with weakness and had possibly blacked out He was apparently diagnosed with Crohn's recently and has had previous colonoscopy and endoscopy, however we do not have records of this at this time Patient will need further workup, appears to be dry and intravascularly volume depleted He denies taking any blood thinners, however patient has had abdominal what seems to be gastritis symptoms for a long time now does take omeprazole and also takes ibuprofen what appears to be on home rec review Status post 2 L bolus FOBT positive Repeat H&H last night showed hemoglobin below 7, transfuse 1 PRBC, hemoglobin this morning 7.6 Albumin 2.7, no history of liver problems however patient has prominent pancreatic head seen on MRI Denies weight loss, total bilirubin is unremarkable, will follow up with tumor marker Patient may need EUS biopsy or MRI pre and postcontrast MRI follow up within 3-6 months Will given one more bolus of fluid Oncology will follow, Dr. Mcclellan, does not recommend any additional imaging at this time and recommends to follow-up with CA 19?9 2/7 pRBC transfused due to Hgb 6, improved to 8, GI notified. Plan: ? GI consulted, appreciate recs ? Oncology consulted, appreciate recs ? IV fluids 120 cc an hour ? B12 with folate ? On GoLytely and clear liquid, colonoscopy today ? Avoiding any blood thinners including NSAIDs as well ? Continue with Protonix 40 mg #?History of Crohn's disease. Patient says he has Crohn's disease No record of diascopy Upon med rec do not see any medicines at this time for Crohn's disease Patient denies having any watery bowel movements Will try to obtain previous colonscopy records from [facility] in [place]? Plan: ? Will investigate further to resume any other home medicines related to Crohn's ? Resume home dicyclomine 20 mg 3 times daily as needed #?History of hypertension. No home blood pressure medicines seen on med rec Plan: ? Will resume home blood pressure medicines if needed #History of RONI. Gave seroquel last night Will consider resuming if it is home medicine Plan: ? Will resume home Xanax 1 mg twice daily ? Will resume home Lexapro 5 mg ? Will resume home Wellbutrin 150 mg Health Maintenance: Disposition: Telemetry. DVT prophylaxis: SCDs. GI prophylaxis: Protonix. Diet: Clear liquid diet and GoLytely. CODE STATUS: Full code. Plan of care discussed with attending Dr. Douglas. Carlos Oscar MD, PGY 2. Disclaimer: This note was dictated by speech recognition. Minor errors in chief financial officer may be present due to voice recognition software. Attending Provider Attestation/Addendum I reviewed labs, imaging, EKG, home medications and prior available records. Face to face evaluation was performed by me. I have personally examined the patient and discussed assessment and plan with the IM team. I reviewed the resident note and agree with the plan with exceptions as below. 69-year-old male who presented with bright blood per rectum. He was found to have acute anemia in the setting of lower GI bleed GI bleed: Likely lower. Acute anemia Possible inflammatory bowel disease Pancreatic mass Consulted GI: Will plan for colonoscopy. Started GoLytely Trend H&H: Hemoglobin dropped again to 6.0. 1 PRBC transfused. He received IV fluids Avoid NSAIDs MRCP did show pancreatic mass. Consulted oncology. Sent tumor markers.
[2024-08-31] MEDS: RINGERS LACTATED 1000 ML 1,000 ML 999 ML IV (18:40)
--- NOTE | 2024-08-31 19:53 | SUR.PHASEI ---
1939 Transfer to room 260 in stable condition no complaints, no s/s of distress noted.
--- NOTE | 2024-08-31 19:56 | SUR.PHASEI ---
1838 To PACU able to lift head off of pillow, following simple commands continue to monitor pt vital signs and status.
[2024-08-31] MEDS: QUEtiapine FUMARATE 25 MG TABLET 50 MG PO (21:48)
[2024-09-01] VITALS: BP 110/67; PULSE 79; PULSE 84; RESP 17; TEMP 36.1; O2SAT 99
[2024-09-01 04:00] VITALS: PULSE 67
[2024-09-01 05:30] VITALS: BP 114/65; PULSE 70; RESP 16; TEMP 36.1; O2SAT 97
[2024-09-01] MEDS: SODIUM CHLORIDE 0.9% 1000 ML 1,000 ML 120 ML IV (05:51)
[2024-09-01] MEDS: DICYCLOMINE 10 MG CAPSULE 20 MG PO (05:51)
[2024-09-01 06:00] VITALS: BMI 26.4
[2024-09-01 07:57] VITALS: BP 108/72; PULSE 67; RESP 14; TEMP 36.7; O2SAT 99
[2024-09-01 08:00] VITALS: PULSE 90
[2024-09-01 08:30] LABS: Basophils % (Auto) 1 % (0-2.5); Eosinophils # (Auto) 0.2 Thou/mm3 (0.0-0.5); Eosinophils % (Auto) 3 % (0-10); Hematocrit 27.7 % (41.0-53.0); Hemoglobin 9.4 g/dL (13.5-16.0); Immature Granulocytes % (Auto) 1 % (0-0); Immature Granulocytes Auto 0.06 Thou/mm3 (0.00-0.00); Lymphocytes # (Auto) 1.3 Thou/mm3 (1.0-4.8); Lymphocytes % (Auto) 19 % (10-50); Mean Corpuscular HGB Conc 33.9 g/dl (31.0-37.0); Mean Corpuscular Hemoglobin 29.5 pg (25.0-35.0); Mean Corpuscular Volume 87 fL (80-100); Monocytes # (Auto) 0.5 Thou/mm3 (0.0-0.8); Monocytes % (Auto) 8 % (0-12); Neutrophils # (Auto) 4.5 Thou/mm3 (1.8-7.7); Neutrophils % (Auto) 69 % (37-80); Nucleated Red Blood Cell # 0.03 Thou/mm3 (0.00-0.00); Nucleated Red Blood Cell % 1 /100 WBC (0); Platelet Count 155 Thou/mm3 (140-440); RDW Standard Deviation 44.9 fL (35.1-43.9); Red Blood Count 3.19 Miln/mm3 (4.50-5.90); White Blood Count 6.6 Thou/mm3 (3.8-10.6)
[2024-09-01 08:31] LABS: Albumin, Serum 3.5 gm/dL (3.4-4.8); Anion Gap 8 (7-16); BUN/Creatinine Ratio 8 Ratio (12-20); Blood Urea Nitrogen 7 mg/dL (9-23); Calcium 8.1 mg/dL (8.3-10.6); Calcium (Corrected) 8.5 mg/dL (8.5-10.1); Chloride 112 mMol/L (98-107); Creatinine (Component) 0.9 mg/dL (0.6-1.3); Estimated Creatinine Clearance 70.9 mL/min (>60); Glucose 172 mg/dL (74-106); Magnesium 1.8 mg/dL (1.6-2.6); Osmolality,Calculated 285 (275-295); Phosphorous 2.1 mg/dL (2.4-5.1); Potassium 3.6 mMol/L (3.4-5.1); Sodium 142 mMol/L (136-145); eGFR > 60 See Note
[2024-09-01] MEDS: PANTOPRAZOLE INJ 40 MG VIAL IV (08:54)
[2024-09-01] MEDS: BuPROPion HCL XL 150 MG TABCR 450 MG PO (08:54)
[2024-09-01] MEDS: POTASSIUM PHOS 22.5 MMOL in SODIUM CHLORIDE 0.9% 500 ML 500 ML 82.778 MMOL IV (08:54)
[2024-09-01] MEDS: ALPRazoLAM 0.25 MG TABLET 1 MG PO (08:54)
[2024-09-01] MEDS: FOLIC ACID 1 MG TABLET PO (08:55)
[2024-09-01] MEDS: ESCITALOPRAM OXALATE 10 MG TABLET 5 MG PO (08:55)
--- NOTE | 2024-09-01 09:54 | ESDS_ITS ---
Planned Discharge Date 09/01/24 DS: Providers Provider Date of admission: 08/29/24 15:51 Primary care physician: Erendira North NP Admitting Provider: Lizy Villagomez MD Attending Provider on Admission: Obinna Douglas MD Consults: 08/29/24 13:16 Consult to Gastroenterology Stat Comment: Consulting Provider: Chris Carter 08/30/24 10:07 Consult to Oncology Routine Comment: Pancreatic head mass 4.5cm Consulting Provider: Silvio Mcclellan Attending Provider on DC: Obinna Douglas MD Discharging Provider: Obinna Douglas MD DS: Diagnosis Problem List Completed Was Problem List Reviewed/Reconciled?: Yes Hospital Course Hospital Course Hospital course: Milo is a 69 y/o male with past medical history of RONI who was admitted to [facility] 08/29/2024 for lower GI bleed. Pt had reported that he had episodes of is here for an evaluation of 4-5 episodes of dark tarry stools that had started 3 days ago. Patient reports that he has not had symptoms like this before. He sa id that he came to the ER couple of days ago and was having some abdominal pain that started in his epigastric region and became diffuse. He said he did not go to the ER to get evaluated because his pain went away. Patient arrived to the ED with a blood pressure of 103/67, respiratory of 20, heart rate of 104, temperature of 98 Fahrenheit, saturating 100% room air. He was worked up and was found to have a white count of 10.7, hemoglobin of 8.3 (baseline seems to be about 14), sodium of 138, potassium 4.8, chloride of 110, anion gap of 5, BUN/creatinine of 54 and 1.1 respectively, blood sugar of 250, calcium of 8.8, T. bili of 0.3, AST ALT of 27 and 16 respectively, troponin negative x 1, Urine analysis did show +3 glucose, FOBT positive. CT abdomen pelvis showed prominent pancreatic head measuring 3.8 centimeters, 2 mm right renal calculus, moderate prostamegaly, perinephric stranding. MRI cholangiopancreatography was done which showed prominent pancreatic head with recommendations for follow-up with IV contrast. GI was consulted who recommended inpatient admission. Patient was given 1 L bolus and medicine was consulted and patient was admitted to floors. While on the floors, pt had numerous repeat H and Hs as pt had some episodes of black stools. He was transfused 4 PRBCs throughout the admission as well as 25 g albumin. He also had a rapid response called on him for concern of hypotension, MAP 58, was given fluids and 1 PRBC and H and H revealed Hgb below 7. Pt tolerated colonoscopy prep and had it done by Dr. Carter. Operative report showed multiple polyps, about ~ 10 biopsies were taken, pt had +4 hemorrhoids which were banded as well. GI recommend for pt to follow up on biopsy results. Pt also had tumor markers done for patient including CEA, CA 19-9 and AFP. CEA and AFP were negative, however CA 19-9 were pending upon d/c. Dr. Mcclellan, radiation oncologist was consulted after MRI abdomen showed prominent pancreatic head and had recommended follow up MRI outpatient. Pt to follow up with Dr. Mcclellan to follow up on CA 19-9 results as well. Pt recommended to continue to take medicines as prescribed as well as we prescribed folic acid and iron to take. Follow up with PCP within 1 week Follow up with GI doctor, Dr. Carter within one week to follow up one biopsies, Follow up with Dr. Mcclellan, Oncologist, in regards to lab marker (CA 19-9) that is pending and prominent pancreatic head, Continue to take medicines as directed Avoid taking NSAIDs like Ibuprofen, Aleeve, Naproxen, Motrin Take Iron and folic acid as prescribed Return to ER if symptoms worsen and return #Acute blood loss anemia. #Symptomatic anemia #2 mm renal calculus, R Side #Prominent pancreatic head #Hemorrhoids, +4 #Multiple colonic polyps #GI bleed #GERD. #Hypoalbuminemia, resolved #History of RONI Patient seen and care discussed with my senior resident, Dr. Oscar , and my attending physician, Dr. Misael Villagomez, PGY-1 Time Spent with Patient Time attestation: Total time spent providing and/or coordinating discharge services: Time spent: Greater than 30 minutes Exam Vital Signs Temp Pulse Resp BP Pulse Ox O2 Del Method O2 Flow Rate 98.0 F 67 14 108/72 99 Room Air 2 09/01/24 07:57 09/01/24 07:57 09/01/24 07:57 09/01/24 07:57 09/01/24 07:57 09/01/24 07:57 08/31/24 19:35 Narrative Exam General: AAOx3, NAD, wearing mask, appears to have dyed hair, looks younger than his actual age, [place]er-speaking male but speaks Citizen Of [place] well HEENT: Dry mucous membranes, conjunctiva clear, EOMI, PERRLA, Cardiovascular: S1, S2, radial pulses +2 bilat, RRR Pulmonary: CTAB bilat no cough, no wheezing GI: No tenderness to light or deep palpitation, no guarding, rigidity, rebound tenderness or distension Extremities: No presence of trace or pitting edema in lower extremities bilaterally, dorsalis pedis pulses +2 bilaterally, palms of hand feels stiff and dry and appear to be a bit pale, cap refill less than 2 Neuro: AAOx3, no focal motor or sensory deficits in the UE or LE bilat Psych: Good judgement, thought and behavior. Cooperative Discharge Plan Plan Patient Disposition: HOME (Self Care) Prescriptions/Referrals Prescriptions/Med Rec: New folic acid 1 mg Tablet 1 mg PO BID Qty: 30 0RF escitalopram oxalate 10 mg Tablet 5 mg PO QDAY Qty: 30 0RF ferrous gluconate 225 mg (27 mg iron) tablet 225 mg PO QDAY Qty: 30 0RF Continued alprazolam 1 MG tablet 1 mg PO BID Qty: 0 bupropion HCl [Wellbutrin XL] 300 MG tablet extended release 24 hr 300 mg PO QAM Qty: 0 bupropion HCl [Wellbutrin XL] 150 MG tablet extended release 24 hr 150 mg PO QAM Qty: 0 acetaminophen 500 mg capsule 1,000 mg PO Q6H PRN (Reason: fever or pain) Qty: 30 0RF gemfibrozil 600 mg tablet 600 mg PO BID Patient Comments: take 1 tablet by mouth twice a day ergocalciferol (vitamin D2) 1,250 mcg (50,000 unit) capsule 50,000 unit PO QWEEK Patient Comments: take 1 capsule by mouth every week quetiapine 50 mg tablet 50 mg PO .QHS Patient Comments: take 1 tablet by mouth at bedtime Discontinued ibuprofen 800 mg tablet 800 mg PO TID PRN (Reason: pain) Qty: 30 0RF acetaminophen 500 mg capsule 1,000 mg PO Q6H PRN (Reason: fever or pain) Qty: 30 0RF ibuprofen 600 mg tablet 600 mg PO Q8H PRN (Reason: fever or pain) Qty: 30 0RF ibuprofen 800 mg tablet 800 mg PO TID PRN (Reason: pain) Qty: 30 0RF Referrals: Erendira North, TIMEKEEPING SUPERVISOR [Primary Care Provider] - Patient/Caregiver Discharge Instructions Other Discharge Activity Instructions:: Follow up with PCP within 1 week Follow up with GI doctor, Dr. Carter within one week to follow up one biopsies, Follow up with Dr. Mcclellan, Oncologist, in regards to lab marker (CA 19-9) that is pending and prominent pancreatic head, Continue to take medicines as directed Avoid taking NSAIDs like Ibuprofen, Aleeve, Naproxen, Motrin Take Iron and folic acid as prescribed Return to ER if symptoms worsen and return Education Materials: Bleeding Gastrointestinal, Anemia, Anatomy of the Digestive System Print Language: Citizen Of [place] Stand Alone Forms: Richa Award Info., Patient Portal Info Letter Discharge Order Discharge Orders: Discharge (Routine); Ordered 09/01/24 Ordered By: Lizy Villagomez Quality Discharge Quality Measures VTE prophylaxis (SCDs) Attestestation MD Attestation I reviewed labs, imaging, EKG, home medications and prior available records. Face to face evaluation was performed by me. I have personally examined the patient and discussed assessment and plan with the IM team. I reviewed the resident note and agree with the plan with exceptions as below. 69-year-old male who presented with bright blood per rectum. He was found to have acute anemia in the setting of lower GI bleed GI bleed: Lower Acute anemia, stable Possible inflammatory bowel disease, ruled out Pancreatic mass Consulted GI: Status post colonoscopy that showed multiple polyps status post polypectomy. Biopsies were obtained. Follow-up with results as outpatient. Trend H&H: Hemoglobin is now stable. Monitor H&H as outpatient Encourage oral hydration Avoid NSAIDs MRCP did show pancreatic mass. Consulted oncology. Sent tumor markers. Outpatient follow-up with oncology Time spent is 40 minutes. More than 50% of the time was spent on patient education and coordination of care.
[2024-09-01] MEDS: IRON SUCROSE CPLX INJ 20 MG/ML VIAL 5 ML 200 MG IVP (10:39)
[2024-09-01] MEDS: NAPH,KPH MBDB 1 PACKET (1.5 GM) PO (11:59)
[2024-09-01 12:00] VITALS: BP 118/84; PULSE 83; RESP 16; TEMP 36.6; O2SAT 98
--- NOTE | 2024-09-01 13:35 | ESPR_ITS ---
Documentation for date of: 09/01/24 Subjective Subjective Interval history: late entry for the note Case discussed with the internal medicine team Colonoscopy findings discussed patient can be discharged home to be followed by the primary care physician Exam Vital Signs Temp Pulse Resp BP Pulse Ox O2 Del Method O2 Flow Rate 97.9 F 83 16 118/84 98 Room Air 2 09/01/24 12:00 09/01/24 12:00 09/01/24 12:00 09/01/24 12:00 09/01/24 12:00 09/01/24 12:00 08/31/24 19:35 Objective Labs 09/01/24 07:56 09/01/24 07:56 Labs: Laboratory Results - last 24 hr 09/01/24 07:56 WBC 6.6 RBC 3.19 L Hgb 9.4 L Hct 27.7 L MCV 87 MCH 29.5 MCHC 33.9 RDW Std Deviation 44.9 H Plt Count 155 Neut % (Auto) 69 Lymph % (Auto) 19 [place] % (Auto) 8 Eos % (Auto) 3 Baso % (Auto) 1 Neut # (Auto) 4.5 Lymph # (Auto) 1.3 [place] # (Auto) 0.5 Eos # (Auto) 0.2 Baso # (Auto) 0.0 Immature Gran # (Auto) 0.06 H Absolute Nucleated RBC 0.03 H Immature Gran % 1 H Nucleated RBC % 1 H Sodium 142 Potassium 3.6 Chloride 112 H Carbon Dioxide 22.0 Anion Gap 8 BUN 7 L Creatinine 0.9 Estim Creat Clear Calc 70.9 eGFR > 60 BUN/Creatinine Ratio 8 L Glucose 172 H D Calculated Osmolality 285 Calcium 8.1 L Corrected Calcium 8.5 Phosphorus 2.1 L Magnesium 1.8 Albumin 3.5 D Impressions Impression: # Multiple colonic polyps # Erythema: Biopsies right colon left colon and rectum pending # Internal hemorrhoid bleeding requiring band ligation Assessment & Plan A&P Narrative 1. Admitted with lower GI bleeding and significant anemia. Awaiting colonoscopy, Dr. Carter. 2. Imaging studies indicate enlarged pancreatic head; CA 19?9 pending. PSA CEA AFP in normal range. 3. Will follow. Thank you for allowing me to evaluate this patient. Time Spent With Patient Time: Total time spent is greater than 50% in coordination of care (as documented) at patient's floor/unit and/or counseling patient:
[2024-09-04 06:54] LABS: CA 19-9 Antigen* 8 U/mL (<34)
== END 2024-09-01 12:58 | disposition home or self-care (01) | DRG 347 ==
LOC: SERX 13:57 → SERHOLD 15:57 → S2NX 22:01
PROVIDERS: Nurse Practitioner Family; Physician Assistant; Specialist; Student in an Organized Health Care Education/Training Program; Emergency Provider Emergency Medicine; PCP Nurse Practitioner Family; Visit Provider Student in an Organized Health Care Education/Training Program
PROC: 0DJD8ZZ Inspection of Lower Intestinal Tract, Via Natural or Artificial Opening Endoscopic (ICD-10-PCS; CPT 45378; principal; 2024-08-31 19:45)
DX: K64.3 Fourth degree hemorrhoids (principal); K57.31 Diverticulosis of large intestine without perforation or abscess with bleeding; D62 Acute posthemorrhagic anemia; D12.4 Benign neoplasm of descending colon; D12.2 Benign neoplasm of ascending colon; K52.9 Noninfective gastroenteritis and colitis, unspecified; K62.89 Other specified diseases of anus and rectum; K63.89 Other specified diseases of intestine; K64.4 Residual hemorrhoidal skin tags; K21.9 Gastro-esophageal reflux disease without esophagitis; F41.1 Generalized anxiety disorder; K86.9 Disease of pancreas, unspecified; N20.0 Calculus of kidney; I10 Essential (primary) hypertension; E88.09 Other disorders of plasma-protein metabolism, not elsewhere classified; I95.9 Hypotension, unspecified; Z90.49 Acquired absence of other specified parts of digestive tract; Z75.8 Other problems related to medical facilities and other health care; Z79.899 Other long term (current) drug therapy
CPT/HCPCS: 36415; 74176; 74182; 80053; 80061; 80069; 80320; 81001; 82105; 82270; 82378; 83036; 83540; 83550; 83605; 83690; 83735; 83993; 84153; 84443; 84484; 85014; 85018; 85025; 85610; 85652; 85730; 86140; 86301; 86850; 86900; 86901; 86923; 87086; 93005; 96361; 96372; 96374; 96375; 99285; A4649; A9579; J1756; J2470; J3420; J3475; J7030; J7040; J7120; P9016; P9047; S8037; 74181; A9270; G0480

== ENCOUNTER 2024-09-13 14:02 | Outpatient (RCR) | payer MEDICARE, SELFPAY ==
--- NOTE | 2024-09-13 15:22 | CTCFLWUP_ITS ---
[facility] [address] [place], [place] [address] FOLLOW-UP NOTE Date: 09/13/2024 MR#: [id number] Name: TL BERNABE : Dx: K86.9 Disease of pancreas, unspecified Identification. Patient evaluated at [facility] 08/30/2024 for lower GI bleeding significant anemia while colonoscopy and biopsy revealed no malignancy. Please see consult of 08/30/2024. Abdominal CT MRI during the admission revealed prominent pancreatic head 4.5 cm. There was no abnormality in the hepatic common bile duct and probable hemangioma noted in the posterior right lobe of liver. Labs show significant anemia hemoglobin 6.0 which improved with packed cell transfusion And CMP showed elevated glucose as a diabetic, but LFTs including bilirubin were unremarkable. Tumor markers CEA PSA CA 19?9 AFP were all within normal limits. Patient now out of the hospital, states that he has a follow-up with Dr. Carter in the near future. Told patient about the finding in CT and MRI but the pancreatic mass. I recommended endoscopic ultrasound with possible biopsy. Patient will be seeing doctors at [facility] and states that he wanted it done there. Has a follow-up with a primary care physician [facility] next week. I gave him my contact number so that I could send all the records and information regarding his pancreatic mass and recent GI workup including colonoscopy. I also made appointment to see me in 3 months. Electronically signed by: Silvio Mcclellan M.D. 09/13/2024 3:20 PM
== END 2024-09-21 23:59 | disposition home or self-care (01) ==
LOC: SCTC 14:02
PROVIDERS: PCP Nurse Practitioner Family; Referring Provider Nurse Practitioner Family; Visit Provider Radiology Therapeutic Radiology
DX: K86.9 Disease of pancreas, unspecified (principal)
CPT/HCPCS: 99213; G0463

== ENCOUNTER 2024-10-12 19:23 | Emergency (ER) | payer MEDICARE, SELFPAY ==
[2024-10-12 19:24] VITALS: BMI 26.6
[2024-10-12 20:29] VITALS: BP 149/83; PULSE 90; RESP 20; TEMP 36.6; O2SAT 96
--- NOTE | 2024-10-12 20:53 | XR_ITS ---
Examination: PA chest single view TECHNIQUE: Upright PA chest single view Exam date and time: 13/08/2024 2013 hours Comparison July 19, 2022 INDICATIONS: Chest pain today. FINDINGS: Normal heart size Moderate elevation right hemidiaphragm Subtle opacity in the upper lung zones IMPRESSION: Suspicious for early pneumonia in both upper lobes
[2024-10-12 21:48] LABS: Basophils % (Auto) 1 % (0-2.5); Eosinophils # (Auto) 0.3 Thou/mm3 (0.0-0.5); Eosinophils % (Auto) 5 % (0-10); Hematocrit 43.3 % (41.0-53.0); Hemoglobin 14.4 g/dL (13.5-16.0); Immature Granulocytes % (Auto) 0 % (0-0); Immature Granulocytes Auto 0.01 Thou/mm3 (0.00-0.00); Lymphocytes # (Auto) 1.5 Thou/mm3 (1.0-4.8); Lymphocytes % (Auto) 25 % (10-50); Mean Corpuscular HGB Conc 33.3 g/dl (31.0-37.0); Mean Corpuscular Hemoglobin 29.8 pg (25.0-35.0); Mean Corpuscular Volume 90 fL (80-100); Monocytes # (Auto) 0.7 Thou/mm3 (0.0-0.8); Monocytes % (Auto) 11 % (0-12); Neutrophils # (Auto) 3.6 Thou/mm3 (1.8-7.7); Neutrophils % (Auto) 58 % (37-80); Nucleated Red Blood Cell % 0 /100 WBC (0); Platelet Count 196 Thou/mm3 (140-440); RDW Standard Deviation 49.9 fL (35.1-43.9); Red Blood Count 4.84 Miln/mm3 (4.50-5.90); White Blood Count 6.1 Thou/mm3 (3.8-10.6)
[2024-10-12 21:53] LABS: INR 1.1 (0.9-1.3); Partial Thromboplastin Time 27.8 Seconds (22.0-36.0); Prothrombin Time 11.7 Seconds (9.0-12.2)
[2024-10-12 22:04] LABS: Alanine Aminotransferase 16 U/L (10-49); Albumin, Serum 4.4 gm/dL (3.4-4.8); Albumin/Globulin Ratio 1.3 (1.2-2.2); Alkaline Phosphatase 108 U/L (46-116); Anion Gap 9 (7-16); Aspartate Amino Transferase 24 U/L (0-34); BUN/Creatinine Ratio 15 Ratio (12-20); Bilirubin,Total 0.3 mg/dL (0.3-1.2); Blood Urea Nitrogen 20 mg/dL (9-23); Calcium 10.1 mg/dL (8.3-10.6); Calcium (Corrected) 10.1 mg/dL (8.5-10.1); Carbon Dioxide 25.3 mMol/L (20.0-31.0); Chloride 108 mMol/L (98-107); Creatinine (Component) 1.3 mg/dL (0.6-1.3); Estimated Creatinine Clearance 47.3 mL/min (>60); Globulin 3.3 gm/dL (2.3-3.5); Glucose 154 mg/dL (74-106); Osmolality,Calculated 288 (275-295); Potassium 3.5 mMol/L (3.4-5.1); Sed Rate (ESR) 11 mm/hr (0-20); Sodium 142 mMol/L (136-145); Total Protein 7.7 gm/dL (5.7-8.2); eGFR 60 See Note
[2024-10-12 22:19] LABS: C-Reactive Protein < 0.5 mg/dL (0.0-0.9)
--- NOTE | 2024-10-13 04:21 | PD.EDSKIN ---
ED Skin Abcess FB-RME/HPI General Chief complaint: General Adult/Misc Complain Stated complaint: NEED BLOOD WORK, RASH Time Seen by Provider: 10/12/24 20:53 Arrival date/time: 10/12/24 19:23 69M with history of HTN and psych presents to ED with 1 week of non-itchy generalized rash. Patient denies URI symptoms. Patient went to clinic and was given antihistamine and steroids w/o relief. Patient denies recent travel and spontaneous bleeding. Limitations: no limitations Related Data Home Medications ?Medication ?Instructions ?Recorded ?Confirmed alprazolam 1 mg tablet 1 mg PO BID ##0 11/01/07 08/29/24 bupropion HCl 150 mg 24 hr tablet, 150 mg PO QAM ##0 11/01/07 08/29/24 extended release (Wellbutrin XL) bupropion HCl 300 mg 24 hr tablet, 300 mg PO QAM ##0 11/01/07 08/29/24 extended release (Wellbutrin XL) ergocalciferol (vitamin D2) 1,250 50,000 unit PO QWEEK 08/29/24 08/29/24 mcg (50,000 unit) capsule gemfibrozil 600 mg tablet 600 mg PO BID 08/29/24 08/29/24 quetiapine 50 mg tablet 50 mg PO .QHS 08/29/24 08/29/24 Previous Rx's ?Medication ?Instructions ?Recorded acetaminophen 500 mg capsule 1,000 mg (2 x 500 mg) PO Q6H PRN 01/03/20 fever or pain #30 caps escitalopram oxalate 10 mg tablet 5 mg (1/2 x 10 mg) PO QDAY #30 tabs 09/01/24 ferrous gluconate 225 mg (27 mg 225 mg PO QDAY #30 tabs 09/01/24 iron) tablet folic acid 1 mg tablet 1 mg PO BID #30 tabs 09/01/24 Allergies Allergy/AdvReac Type Severity Reaction Status Date / Time No Known Allergies Allergy Verified 10/12/24 19:24 Review of Systems Review of Systems Systems Reviewed: All systems reviewed, normal except as documented Constitutional Constitutional: Reports system reviewed and no additional complaints, except as documented, Denies fever(s) and Denies headache(s) ENT Ears, Nose, Mouth, and Throat: Denies disequilibrium and Denies headache(s) Cardiovascular Cardiovascular: Reports system reviewed and no additional complaints, except as documented, Denies chest pain and Denies dyspnea Respiratory Respiratory: Reports system reviewed and no additional complaints, except as documented, Denies cough and Denies dyspnea Gastrointestinal Gastrointestinal: Reports system reviewed and no additional complaints, except as documented, Denies abdominal pain, Denies nausea and Denies vomiting Integumentary/Breasts Skin/Breast: Reports as per HPI and Reports rash Neurologic Neurologic: Reports system reviewed and no additional complaints, except as documented, Denies confusion, Denies disequilibrium and Denies headache(s) Psychiatric Psychiatric: Denies confusion Past Medical History Past Medical History NEUROLOGIC: Negative Neurological Disorders or Seizures CARDIAC: Positive Cardiac Disorders and Hypertension; Negative Congestive Heart Failure RESPIRATORY: Negative Chronic Obstructive Pulmonary Disease (COPD) GASTROINTESTINAL: Positive Crohn's Disease GENITOURINARY: Negative Genitourinary Disorders or Renal Disease ENDOCRINE: Negative Endocrine Disorders, Diabetes Mellitus Type 1 or Diabetes Mellitus Type 2 PSYCHO/SOCIAL: Positive Anxiety OTHER HISTORY: Positive Blood Transfusions; Negative Blood Transfusion Reaction or Anesthesia Reactions Social History SMOKING STATUS: Never smoker SUBSTANCE USE: does not use ED Exam General Limitations: Present no limitations General appearance: Present alert and in no apparent distress Head Head exam: Present atraumatic Eye Eye exam: Present normal appearance, PERRL and EOMI ENT ENT exam: Present normal exam, normal oropharynx and mucous membranes moist Neck Neck exam: Present normal inspection, full ROM and trachea midline Chest Chest inspection: Present normal inspection and symmetric chest wall rise Respiratory Respiratory exam: Present normal lung sounds bilaterally Cardiovascular Cardiovascular exam: Present regular rate, normal rhythm and normal heart sounds Abdominal Exam Abdominal exam: Present soft and normal bowel sounds Extremities Exam Extremities exam: Present normal inspection and full ROM Back Exam Back exam: Present normal inspection and full ROM Neurological Exam Neurological exam: Present alert, oriented X3 and CN II-XII intact Psychiatric Psychiatric exam: Present normal affect and normal mood Skin Skin exam: Present warm, dry, intact and normal color Course Quality Measures none Orders Category Date Time Status XR chest 1V portable Stat Exams 10/12/24 20:53 Completed CBC Stat Lab 10/12/24 21:30 Completed CMP [Comprehensive Metabolic Panel] Stat Lab 10/12/24 21:30 Completed CRP [C-Reactive Protein] Stat Lab 10/12/24 21:30 Completed Cocci Serology IgM with reflex to IgG [Cocci Serology, Lab 10/12/24 22:43 Received Unk History] Stat ESR [Sed Rate (ESR)] Stat Lab 10/12/24 21:30 Completed INR [Prothrombin Time with INR] Stat Lab 10/12/24 21:30 Completed PTT [Partial Thromboplastin Time] Stat Lab 10/12/24 21:30 Completed Vital Signs Vital signs: Vital Signs Temperature 97.9 F 10/12/24 20:29 Pulse Rate 90 10/12/24 20:29 Respiratory Rate 20 10/12/24 20:29 Blood Pressure 149/83 H 10/12/24 20:29 Pulse Oximetry (%) 96 10/12/24 20:29 Oxygen Delivery Method Room Air 10/12/24 20:29 O2 at 96% on RA and WNLs Skin / Abscess / Foreign Body MDM Narrative MDM Narrative:: 69M with history of HTN and psych presents to ED with 1 week of non-itchy generalized rash. Patient denies URI symptoms. Patient went to clinic and was given antihistamine and steroids w/o relief. Patient denies recent travel and spontaneous bleeding. Physical exam reveals blanching petechiae/purpura on skin including torso, ab, and extremities. They are non-tender and no swelling. Clear lungs. Patient is afebrile, calm, and alert. No leukocytosis or anemia. Platelets normal. Coags normal. ESR/CRP normal. CXR possible PNA. Cocci pending at time of DC. [employer] given. Patient data External records reviewed:: [facility] previous records Clinical information provided by:: patient Social determinants that could affect healthcare access:: mental health Patient has the following chronic illnesses:: HTN and psych How is presenting disease/condition affected by chronic disease/condition?: uneffected by Evaluation data The following diagnostics were reviewed and interpreted by me:: lab results Lab and/or radiology exams considered but not ordered:: ordered Interpretation Summary: above Medications / Prescriptions Medications or Prescriptions considered but not ordered:: not ordered Medication administrations:: n/a Consultations Consultation(s) initiated? (list below): No Diagnosis Skin/Abscess Differential Diagnosis: abscess of skin or subcutaneous tissue, viral exanthem, dermatophytosis, urticaria, herpes zoster, allergic reaction to drug, cellulitis, eczema, insect bites, impetigo, contact dermatitis and other (rash) Most likely diagnosis given after review of the tests above:: rash Admission Indicated Admission indicated?: not indicated Admission Request Was there a request for admission?: No Disposition Plan Disposition Plan: Discharge Discharge Attestation Discharge Attestation: The patient and all family members were given an opportunity to ask questions and understood the discharge instructions. Discharge instructions specifically effects, indications for sooner follow up or return to the emergency department, and the expected course of current diagnosis. Patient condition: Stable Discharge Plan Plan Patient Disposition: HOME (Self Care) Disposition Comment: Stable Prescriptions/Referrals Prescriptions/Med Rec: No Action alprazolam 1 MG tablet 1 mg PO BID Qty: 0 bupropion HCl [Wellbutrin XL] 300 MG tablet extended release 24 hr 300 mg PO QAM Qty: 0 bupropion HCl [Wellbutrin XL] 150 MG tablet extended release 24 hr 150 mg PO QAM Qty: 0 acetaminophen 500 mg capsule 1,000 mg PO Q6H PRN (Reason: fever or pain) Qty: 30 0RF gemfibrozil 600 mg tablet 600 mg PO BID Patient Comments: take 1 tablet by mouth twice a day ergocalciferol (vitamin D2) 1,250 mcg (50,000 unit) capsule 50,000 unit PO QWEEK Patient Comments: take 1 capsule by mouth every week quetiapine 50 mg tablet 50 mg PO .QHS Patient Comments: take 1 tablet by mouth at bedtime folic acid 1 mg Tablet 1 mg PO BID Qty: 30 0RF escitalopram oxalate 10 mg Tablet 5 mg PO QDAY Qty: 30 0RF ferrous gluconate 225 mg (27 mg iron) tablet 225 mg PO QDAY Qty: 30 0RF Referrals: [facility] [employer] INSTRUCTOR [Primary Care Provider] - In 1 week Problem List Clinical Impression: Rash Patient/Caregiver Discharge Instructions Additional Instructions: Please follow-up with PCP within 24-48 hours and return immediately if symptoms worsen. Look on patient portal for lab results. Print Language: Polish Stand Alone Forms: Patient Portal Info Letter DAJUAN/COATING MIXER TENDER Supervising Physician DAJUAN/LONA Supervising Physician: Dr. Mcclellan
[2024-10-14 15:53] LABS: Cocci Serology, IgM Positive (Negative)
[2024-10-14 15:54] LABS: Cocid Sro, CF/ID (UCD) NO CHG* See Sep Rpt
== END 2024-10-12 23:40 | disposition home or self-care (01) ==
PROVIDERS: Physician Assistant; Emergency Provider Emergency Medicine; PCP Nurse Practitioner Family
DX: R21 Rash and other nonspecific skin eruption (principal); R07.9 Chest pain, unspecified
CPT/HCPCS: 36415; 71045; 80053; 85025; 85610; 85652; 85730; 86140; 86635; 99283

== ENCOUNTER → 2024-10-12 | Outpatient (CLI) | payer MEDICARE, SELFPAY ==
--- NOTE | 2024-10-12 10:30 | XR_ITS ---
Examination: CT abdomen with intravenous contrast. Coronal 2-D reconstructions. Sagittal 2-D reconstructions. Date and time of exam:October 12, 2024 1033 hours INDICATIONS: Bilateral flank pain beginning 6 weeks ago, prominent pancreatic head 2 mm right renal calculus on CT abdomen and pelvis without contrast August 29, 2024 CTDI: vol (mGy): 8.23 DLP: (mGycm): 306 Technique: Axial images of the abdomen have been obtained, 3 mm slice thickness, 60 cc [id number] 2-D sagittal coronal reconstructions Low dose protocols were performed. One or more of the following dose reduction techniques were used; automated exposure control, adjustment of the mA and/or KV according to patient size, use of iterative reconstruction technique. Findings: Subcentimeter liver densities No biliary tract dilatation Spleen not enlarged On this study pancreatic head measures 3.3 cm Moderate right renal parenchymal scar formation Subcentimeter renal cyst More solid-appearing right renal lesion axial image 105 measuring 12 mm Aorta normal size No bowel obstruction Normal appendix IMPRESSION: Mildly prominent pancreatic head, recommend 3 month follow-up CT abdomen with contrast Solid-appearing right renal lesion 12 mm, recommend dedicated renal sonography follow-up with the radiologist in attendance
== END | disposition home or self-care (01) ==
PROVIDERS: Referring Provider Internal Medicine; Visit Provider Internal Medicine
DX: K86.89 Other specified diseases of pancreas (principal); N28.9 Disorder of kidney and ureter, unspecified
CPT/HCPCS: 74160; A4649; Q9967

== ENCOUNTER 2024-10-17 13:00 | Outpatient (RCR) | payer MEDICARE, SELFPAY ==
--- NOTE | 2024-10-17 13:59 | CTCFLWUP_ITS ---
[facility] [address] [place], [place] [address] FOLLOW-UP NOTE Date: 10/17/2024 MR#: [id number] Name: TL BERNABE : Dx: K86.9 Disease of pancreas, unspecified Identification. Patient was evaluated [facility] 08/30/2024 for lower GI bleeding with significant anemia and biopsy revealed no malignancy. Patient had colonoscopy 08/31/2024 and biopsies from various sites from right colon left colon and rectum and polyps from descending colon ascending colon were negative for malignancy or high-grade dysplasia. Labs show significant anemia with hemoglobin 6.0 which improved with packed cell transfusion. CMP showed elevated glucose is diabetic but LFTs including bilirubin unremarkable as were tumor markers CEA PSA CA 19?9 AFP. Patient has follow-up with occ ther Dr. Carter in the near future. Abdominal CT MRI during admission revealed prominent pancreatic head of 4.5 cm. There was no abnormality in the hepatic common bile duct and probable hemangioma noted in the posterior right lobe of liver. Endoscopic ultrasound was recommended and when seen patient will follow-up in 09/13/2024, patient preferred to go to [facility] on his own for further workup. Today he has made an appointment to see be referred to a closer place from where he lives. Patient actually had CT scan 10/12/2024 which showed mildly prominent pancreatic head, which actually looks smaller than visualized on imaging studies a month ago. Also noted was a solid appearing right renal lesion 12 mm and renal sonogram with radiologist and audience was recommended. Assessment.1. GI bleeding now resolved colonoscopy showing no obvious malignancy with negative biopsies at various sites. 2. Prominent pancreatic head which actually looks smaller on the most recent CT. Nevertheless endoscopic ultrasound with possible biopsy will be ordered 3. Right renal lesion. Solid-appearing. Renal sonogram with radiologist audience will be ordered as well. 4 Follow-up 3 months.. Electronically signed by: Silvio Mcclellan M.D. 10/17/2024 1:56 PM
== END 2024-10-22 23:59 | disposition home or self-care (01) ==
LOC: SCTC 13:00
PROVIDERS: PCP Nurse Practitioner Family; Referring Provider Radiology Therapeutic Radiology; Visit Provider Radiology Therapeutic Radiology
DX: N28.9 Disorder of kidney and ureter, unspecified (principal); K86.9 Disease of pancreas, unspecified; Z87.19 Personal history of other diseases of the digestive system
CPT/HCPCS: 99213; G0463